=== PATIENT | female | born 1945 | race Caucasian/White ===

== ENCOUNTER → 2022-09-02 08:44 | Outpatient (BNVA) | payer MEDICARE, MEDICAID, SELFPAY | PROVIDERS: PCP Family Medicine; Visit Provider Psychiatry & Neurology Neurology | DX: F09 Unspecified mental disorder due to known physiological condition (principal); F32.A Depression, unspecified; F41.9 Anxiety disorder, unspecified | CPT/HCPCS: 99202 ==

== ENCOUNTER 2022-10-12 16:15 | Outpatient (REF) | payer MEDICARE, SELFPAY ==
--- NOTE | ~2022-10-12 | MR_ITS ---
EXAMINATION: MR BRAIN WITHOUT CONTRAST CLINICAL INFORMATION: FULLNESS, left-sided blindness, cognitive condition COMPARISON: MRI brain 10/16/2009 TECHNIQUE: MRI of the brain was obtained using routine sequences without contrast. FINDINGS: No acute infarct. No acute intracranial hemorrhage or extra-axial fluid collection. Progressive mild generalized parenchymal volume loss. 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 New chronic small vessel infarct in the left external capsule, again seen within the right cano radiata/right inferior frontal gyrus subcortical white matter. Redemonstrated measuring T2 hyperintensity within the globus pallidus right, which may reflect sequelae of prior vascular or toxic/metabolic insult. No mass lesion, mass effect, or herniation pattern. Normal intracranial arterial and dural venous sinus flow voids. Normal appearance of the midline structures. The orbits are grossly unremarkable. The paranasal sinuses and mastoids are well aerated. 4 mm proteinaceous mucus retention cyst in the right paramedian nasopharynx. Normal marrow signal. Incompletely imaged cervical discogenic disease and spondylosis. MR/MR head/brain wo con IMPRESSION: No acute intracranial abnormality. Progressive mild volume loss and nonspecific white matter disease likely reflecting mild chronic microangiopathy. Chronic lacunar infarcts, again seen in the the right cano radiata/inferior frontal gyrus subcortical white matter and new in the left external capsule.
== END 2022-10-12 16:16 | disposition home or self-care (01) ==
LOC: HO.MRI 16:15
PROVIDERS: PCP Family Medicine; Visit Provider Psychiatry & Neurology Neurology
DX: F09 Unspecified mental disorder due to known physiological condition (principal)
CPT/HCPCS: 70551

== ENCOUNTER → 2022-11-26 09:04 | Outpatient (BNVA) | payer MEDICARE, SELFPAY | PROVIDERS: PCP Family Medicine; Visit Provider Psychiatry & Neurology Neurology | DX: F32.A Depression, unspecified (principal); F41.9 Anxiety disorder, unspecified; F09 Unspecified mental disorder due to known physiological condition | CPT/HCPCS: 99212 ==

== ENCOUNTER 2022-12-01 09:29 | Outpatient (REF) | payer MEDICARE, SELFPAY ==
[2022-12-01 09:48] LABS: MANUAL DIFF FLAG NO
[2022-12-01 10:38] LABS: Basophils Absolute Auto 0.1 X10*3/uL (0.0-0.2); Basophils Percent Auto 1.1 % (0-2); Eosinophils Absolute Auto 0.4 X10*3/uL (0.0-0.4); Eosinophils Percent Auto 5.7 % (0-4); Hematocrit 43.4 % (37.0-47.0); Hemoglobin 15.2 g/dl (12.0-16.0); Imm Gran Abs Auto 0.04 X10*3/uL (0.00-0.03); Imm Gran Pct Auto 0.5 % (0.0-0.4); Lymphocytes Absolute Auto 1.3 X10*3/uL (1.2-4.9); Lymphocytes Percent Auto 17.9 % (20-40); Mean Corpuscular Hemoglobin 30.8 pg (27.0-33.0); Mean Platelet Volume 9.6 fL (9.4-12.3); Monocytes Absolute Auto 0.5 X10*3/uL (0.1-1.2); Monocytes Percent Auto 6.4 % (2-11); Neutrophils Percent Auto 68.4 % (45-73); Platelet Count 297 X10*3/uL (160-400); Red Blood Count 4.93 X10*6/uL (4.20-5.50); Red Cell Distribution Width 12.3 % (11.0-16.0); White Blood Count 7.4 X10*3/uL (4.8-10.8)
[2022-12-01 11:16] LABS: Erythrocyte Sedimentation Rate 23 MM/HR (0-20)
[2022-12-01 11:44] LABS: Alanine Aminotransferase 24 U/L (0-31); Albumin Level 3.7 g/dL (3.5-5.0); Alkaline Phosphatase 109 U/L (39-117); Anion Gap 15 (12-20); Aspartate Amino Transferase 26 U/L (5-31); Bilirubin Total 0.5 mg/dL (0.0-1.0); Blood Urea Nitrogen 12 mg/dL (9-16); Carbon Dioxide 27 mmol/L (22-29); Chloride 99 mmol/L (96-108); Estimated Glomerular Filt Rate 56; Glucose Random 439 mg/dL (60-115); Sodium 137 mmol/L (135-145)
[2022-12-01 11:51] LABS: Folate 7.8 ng/mL (> or = 4.0); TSH reflex Free T4 1.68 uIU/mL (0.32-4.0); Vitamin B12 393 pg/mL (200-900)
== END 2022-12-01 09:30 | disposition home or self-care (01) ==
LOC: HO.LAB 09:29
PROVIDERS: PCP Family Medicine; Visit Provider Psychiatry & Neurology Neurology
DX: F09 Unspecified mental disorder due to known physiological condition (principal)
CPT/HCPCS: 36415; 80053; 82607; 82746; 84443; 85025; 85652

== ENCOUNTER 2023-06-27 10:08 | Outpatient (REF) | payer MEDICARE, SELFPAY ==
[2023-06-27 11:42] LABS: Estimated Average Glucose 338 mg/dL; Hemoglobin A1c % 13.4 % (<6.0)
[2023-06-27 11:53] LABS: Alanine Aminotransferase 19 U/L (0-31); Albumin Level 4.3 g/dL (3.5-5.0); Alkaline Phosphatase 116 U/L (39-117); Anion Gap 17 (12-20); Aspartate Amino Transferase 18 U/L (5-31); Bilirubin Direct 0.2 mg/dL (0.0-0.5); Bilirubin Total 0.7 mg/dL (0.0-1.0); Blood Urea Nitrogen 14 mg/dL (9-16); Calcium 10.1 mg/dL (8.4-10.2); Carbon Dioxide 30 mmol/L (22-29); Chloride 92 mmol/L (96-108); Cholesterol 339 mg/dL (<200); Estimated Glomerular Filt Rate 47; Glucose Random 387 mg/dL (60-115); HDL Cholesterol 57 mg/dL (>40); LDL Cholesterol Calculated 251 mg/dL (<100); Potassium 2.9 mmol/L (3.3-5.1); Sodium 136 mmol/L (135-145); Total Protein 8.7 g/dL (6.5-8.0); Triglycerides 155 mg/dL (<150)
[2023-06-27 12:17] LABS: Microalbum/Creatinine Ratio Ur 17.9 ug/mg cr (<30)
== END 2023-06-27 10:09 | disposition home or self-care (01) ==
LOC: HO.HHCL 10:08
PROVIDERS: Visit Provider Family Medicine
DX: E11.9 Type 2 diabetes mellitus without complications (principal)
CPT/HCPCS: 36415; 80048; 80061; 80076; 82043; 82570; 83036

== ENCOUNTER 2023-07-21 12:07 | Outpatient (REF) | payer MEDICARE, SELFPAY ==
--- NOTE | ~2023-07-21 | XR_ITS ---
EXAMINATION: XR HIP, RIGHT CLINICAL INFORMATION: Right hip pain after fall COMPARISON: None available. TECHNIQUE: Two views of the right hip. FINDINGS: No fracture. Alignment is anatomic. Hip joint space is maintained. Soft tissues are unremarkable. XR/XR hip RT min 2V IMPRESSION: Normal right hip.
== END 2023-07-21 12:08 | disposition home or self-care (01) ==
LOC: HO.HHCX 12:07
PROVIDERS: Visit Provider Student in an Organized Health Care Education/Training Program
DX: M25.551 Pain in right hip (principal)
CPT/HCPCS: 73502

== ENCOUNTER 2023-07-21 12:30 | Outpatient (REF) | payer MEDICARE, SELFPAY ==
[2023-07-21 13:11] LABS: MANUAL DIFF FLAG NO
[2023-07-21 13:38] LABS: Basophils Absolute Auto 0.1 X10*3/uL (0.0-0.2); Basophils Percent Auto 0.9 % (0-2); Eosinophils Absolute Auto 0.3 X10*3/uL (0.0-0.4); Eosinophils Percent Auto 3.2 % (0-4); Hematocrit 45.6 % (37.0-47.0); Imm Gran Abs Auto 0.04 X10*3/uL (0.00-0.03); Imm Gran Pct Auto 0.5 % (0.0-0.4); Lymphocytes Percent Auto 22.5 % (20-40); Mean Corpuscular HGB Conc 35.1 g/dl (31.0-35.0); Mean Corpuscular Hemoglobin 30.5 pg (27.0-33.0); Mean Corpuscular Volume 86.9 fL (80.0-98.0); Mean Platelet Volume 10.3 fL (9.4-12.3); Monocytes Absolute Auto 0.6 X10*3/uL (0.1-1.2); Monocytes Percent Auto 6.6 % (2-11); Neutrophils Absolute Auto 5.9 x10*3/uL (2.0-8.3); Neutrophils Percent Auto 66.3 % (45-73); Platelet Count 336 X10*3/uL (160-400); Red Blood Count 5.25 X10*6/uL (4.20-5.50); Red Cell Distribution Width 11.5 % (11.0-16.0); White Blood Count 8.9 X10*3/uL (4.8-10.8)
[2023-07-21 14:18] LABS: Potassium 2.7 mmol/L (3.3-5.1)
== END 2023-07-21 12:31 | disposition home or self-care (01) ==
LOC: HO.HHCL 12:30
PROVIDERS: Family Medicine; Visit Provider Student in an Organized Health Care Education/Training Program
DX: E87.6 Hypokalemia (principal); T14.8XXA Other injury of unspecified body region, initial encounter
CPT/HCPCS: 36415; 83735; 84132; 85025

== ENCOUNTER 2023-07-22 09:52 | Outpatient (REF) | payer MEDICARE, SELFPAY ==
[2023-07-22 12:19] LABS: Appearance Urine Clear; Color Urine Yellow; Glucose Urine UA >=1000 mg/dL (Negative); Leukocyte Esterase Urine Trace (Negative); Nitrite Urine Negative (Negative); PH 7.5 (5.0-9.0); Specific Gravity - Urine 1.025 (1.005-1.025); UMIC TRIGGER UACC YES; Urine Blood Negative (Negative); Urine Ketones Negative (Negative); Urine Protein Negative (Neg-Trace)
[2023-07-22 12:22] LABS: Bacteria Urine Trace (None Seen); Hyaline Casts Urine 0-2 /LPF (0-2); RBC Urine 0-2 /HPF (0-2); UACC Culture Trigger YES
== END 2023-07-22 09:53 | disposition home or self-care (01) ==
LOC: HO.HHCL 09:52
PROVIDERS: Visit Provider Student in an Organized Health Care Education/Training Program
DX: M25.551 Pain in right hip (principal); R82.90 Unspecified abnormal findings in urine
CPT/HCPCS: 81001; 87086

== ENCOUNTER 2023-08-04 12:01 | Outpatient (REF) | payer MEDICARE, SELFPAY | END 2023-08-04 12:02 | disposition home or self-care (01) | LOC: HO.HHCL 12:01 | PROVIDERS: Visit Provider Student in an Organized Health Care Education/Training Program | DX: E87.6 Hypokalemia (principal) | CPT/HCPCS: 36415; 80053 ==

== ENCOUNTER 2023-08-10 19:29 | Inpatient (IN) | payer OTHER, SELFPAY ==
--- NOTE | 2023-08-10 | ECG_ITS ---
Test Reason : AMS Blood Pressure : / mmHG Vent. Rate : 067 BPM Atrial Rate : 067 BPM P-R Int : 174 ms QRS Dur : 106 ms QT Int : 442 ms P-R-T Axes : 000 -32 140 degrees QTc Int : 467 ms Sinus rhythm with occasional Premature ventricular complexes Left axis deviation Minimal voltage criteria for LVH, may be normal variant ( [place] product ) ST & T wave abnormality, consider anterolateral ischemia Abnormal ECG When compared with ECG of 15-OCT-2009 07:35, T wave inversion now evident in Anterolateral leads Referred By: Generic ED Physician Electronically Signed By:SARKIS KAUFMAN MD
--- NOTE | ~2023-08-10 | XR_ITS ---
EXAMINATION: XR CHEST CLINICAL INFORMATION: Fever and cough COMPARISON: Chest 10/15/2009. TECHNIQUE: Frontal view of the chest was obtained. FINDINGS: The lungs are hypoexpanded but clear. The heart size and pulmonary vascularity is normal. No gross bony abnormality seen. XR/XR chest 1V IMPRESSION: Mild cardiomegaly. No acute process seen.
[2023-08-10 19:36] VITALS: BP 132/92; PULSE 69; PULSE 74; RESP 14; TEMP 38.3; O2SAT 93; BMI 26.4
[2023-08-10 19:42] VITALS: BP 122/65; O2SAT 93
--- NOTE | 2023-08-10 19:45 | ED_ITS ---
HPI - General Adult General Chief complaint: General Medical Stated complaint: AMS,dementia @baseline, ?UTI Time Seen by Provider: 08/10/23 19:45 History of Present Illness HPI narrative: The the patient is a 78-year-old woman with a history of dementia who lives at home and is looked after primarily by her daughter and grandson. Apparently the patient was fine yesterday. Today the patient seemed ill. She seemed weak and more confused than usual. She has a history of type 2 diabetes for which she takes metformin 500 mg ER daily. She has also recently been started on Januvia 25 mg daily and Lantus 10 units at bedtime. The patient is nonverbal and is unable to give any history. The patient's son is at the bedside as is the grandson. They report that the patient has been coughing a lot during the day today and has also vomited a couple of times. The patient has not seemed to be in any pain. There was no diarrhea. Related Data Home Medications Medication Instructions Recorded Confirmed atenolol 50 mg-chlorthalidone 25 1 tab PO DAILY 09/02/22 11/26/22 mg tablet (Tenoretic) ibuprofen 800 mg tablet 800 mg PO Q8H 09/02/22 11/26/22 loratadine 10 mg tablet (Allergy 10 mg PO DAILY 09/02/22 11/26/22 Relief (loratadine)) metformin 500 mg tablet 500 mg PO DAILY 09/02/22 11/26/22 Previous Rx's Medication Instructions Recorded citalopram 10 mg tablet 10 mg PO DAILY #30 tabs 07/01/23 memantine 21 mg capsule 21 mg PO DAILY #30 ea 07/01/23 sprinkle,extended release 24hr Allergies Allergy/AdvReac Type Severity Reaction Status Date / Time codeine [Codeine] Allergy Severe PASSED OUT Verified 08/11/23 01:08 Penicillins Allergy Unknown Verified 08/11/23 01:08 Review of Systems 2 Review of Systems: Yes all other systems are reviewed and are negative PMFSH Past Medical History Onset Date is defined in the Problem List Problems that require an onset date and time if occurred within 24 hrs of arrival to the ED Aortic Dissection and Rupture; Neurologic impairment; Cardiopulmonary Arrest; Endotracheal Intubation; Insertion or Replacement of Mechanical Circulatory Assist Device Medical History (Updated 08/11/23 @ 00:32 by Noel Valenzuela MD) Confusion Left optic neuropathy Fibroids Combined hyperlipidemia Diabetes HTN (hypertension) Anxiety Depression Surgical History H/O: hysterectomy Family History Family History Mother Diabetes Cancer Social History Social History Alcohol intake: never Patient Tobacco Use Status: Never used Tobacco Smoked in Last 30 Days: No Use of substances other than those prescribed or required for medical reasons: No Advance Directives: No Advance Directives Information Provided: No Physical Exam ED Vital Signs: Vital Signs - 24 hr 08/10/23 19:36 08/10/23 19:42 08/10/23 20:00 Temperature 100.9 F H Pulse Rate 69 Pulse Rate [Monitor] 65 Respiratory Rate 14 Blood Pressure 122/65 Pulse Oximetry 93 Oxygen Delivery Method Room Air Room Air Oxygen Flow Rate 08/10/23 22:36 08/10/23 23:46 08/10/23 23:46 Temperature 98.5 F Pulse Rate 64 Pulse Rate [Monitor] Respiratory Rate 18 Blood Pressure 115/57 L Pulse Oximetry 92 90 L 95 Oxygen Delivery Method Room Air Room Air Nasal Cannula Oxygen Flow Rate 1 BMI result Body Mass Index 26.4 Const Other: The patient is a chronically ill-appearing 78-year-old who seemed very sleepy. She aroused with tactile stimuli. She did not seem in pain or respiratory distress. She looks somewhat ill and very fatigued. HENMT Other: Mucous membranes were moist. Face is symmetrical. Eyes Other: Pupils are round equal, conjunctivae clear, no scleral icterus. Neck Other: No JVD. No cervical adenopathy. Neck is supple. Resp Other: No increased work of breathing. No tanisha crackles or wheezes. Cardio Other: The patient has regular rate rhythm no murmur. GI Other: The abdomen is soft and does not seem tender at all. Skin Other: Skin is dry and unremarkable. No diaphoresis. No cellulitis. Neuro Other: The patient seems very fatigued. She responds to tactile stimuli. She is apparently demented at baseline. There is no obvious facial asymmetry. Her tone in her extremities seems symmetrical. No obvious focal finding. Extrem Other: No obvious peripheral edema. Medications Administered Discontinued Medications Generic Name Dose Route Start Last Admin Trade Name Jean Pierre PRN Reason Stop Dose Admin Acetaminophen 650 mg 08/10/23 21:02 08/10/23 21:13 Acetaminophen 325 Mg Tablet PO 08/10/23 21:03 Not Given ONCE ONE Acetaminophen 650 mg 08/10/23 21:31 08/10/23 22:02 Acetaminophen Supp 650 Mg Supp.Rect OR 08/10/23 21:32 650 mg ONCE ONE Administration Potassium Chloride/Sodium Chloride 40 meq in 1,000 mls @ 250 mls/hr 08/10/23 20:30 08/10/23 21:36 Kcl 40 Meq In 0.9 % Sodium Chl IV 08/11/23 00:29 250 mls/hr .Q4H TERENCE Administration Ceftriaxone Sodium 1 gm/ 50 mls @ 100 mls/hr 08/10/23 21:27 08/10/23 22:18 Sodium Chloride IV 08/10/23 21:56 Infused ONCE ONE Infusion Azithromycin 500 mg/ Sodium 250 mls @ 125 mls/hr 08/10/23 21:28 08/11/23 00:05 Chloride IV 08/10/23 23:27 Infused ONCE ONE Infusion Sodium Chloride 1,000 mls @ 999 mls/hr 08/10/23 22:00 08/10/23 23:29 Ns IV 08/10/23 23:00 Infused .Q1H1M TERENCE Infusion Insulin Glargine 12 unit 08/10/23 22:35 08/10/23 23:02 Insulin Glargine,Hum.Rec.Anlog 100 Unit/Ml 10 Ml Vial SUBCUT 08/10/23 22:36 12 unit ONCE ONE Administration Potassium Chloride 40 meq 08/10/23 21:02 08/10/23 21:39 Potassium Chloride Er 10 Meq Tablet.Er PO 08/10/23 21:03 Not Given ONCE ONE Medical Decision Making Medical Decision Making MDM Narrative: The patient is a 78-year-old female who presents with 1 day of illness characterized by cough, weakness, and increasing confusion. Here she was found to have a fever. She did not seem toxic. She was not tachycardic or hypotensive. She has tested positive for COVID. Additional evaluation included a negative urinalysis and a negative chest x-ray. Her abdomen is entirely benign. The patient's white count was elevated and her CRP was somewhat elevated at 7.56. Therefore, although I think that COVID is really her primary problem we obtained blood cultures and a lactate. Her lactate came back elevated at 4.0. The patient is on metformin. Given that the patient had a heart rate primarily in the 60s and was not hypotensive I think it is highly unlikely that the patient's elevated lactate is an indication of sepsis. I think it is much more likely that the patient's elevated lactate is related to her use of metformin and not sepsis. The patient was started on antibiotics and given IV fluids. Additionally the patient was hypokalemic and she was given potassium replacement. She was also hyperglycemic and was given an evening dose of Lantus. She was then admitted to the hospitalist service. Her repeat lactate improved at 3.1. Lab Data 08/10/23 19:56 08/10/23 19:56 Labs: Lab Results 08/10/23 08/10/23 08/10/23 Range/Units 19:56 20:13 20:14 WBC 16.1 H (4.8-10.8) X10*3/uL RBC 5.02 (4.20-5.50) X10*6/uL Hgb 15.1 (12.0-16.0) g/dl Hct 43.2 (37.0-47.0) % MCV 86.1 (80.0-98.0) fL MCH 30.1 (27.0-33.0) pg MCHC 35.0 (31.0-35.0) g/dl RDW 11.9 (11.0-16.0) % Plt Count 265 (160-400) X10*3/uL MPV 9.2 L (9.4-12.3) fL Immature Gran % (Auto) 0.4 (0.0-0.4) % Neut % (Auto) 86.3 H (45-73) % Lymph % (Auto) 5.3 L (20-40) % Victoria % (Auto) 7.8 (2-11) % Eos % (Auto) 0.0 (0-4) % Baso % (Auto) 0.2 (0-2) % Lymph # (Auto) 0.9 L (1.2-4.9) X10*3/uL Victoria # (Auto) 1.3 H (0.1-1.2) X10*3/uL Eos # (Auto) 0.0 (0.0-0.4) X10*3/uL Baso # (Auto) 0.0 (0.0-0.2) X10*3/uL Abs Immat Gran (auto) 0.06 H (0.00-0.03) X10*3/uL Absolute Neuts (auto) 13.9 H (2.0-8.3) x10*3/uL Absolute Nucleated RBC 0.000 (0.0-0.012) X10*3/uL Nucleated RBC % (auto) 0.0 (0.0-0.2) /100WBC Sodium 133 L (135-145) mmol/L Potassium 2.8 L* (3.3-5.1) mmol/L Chloride 91 L (96-108) mmol/L Carbon Dioxide 25 (22-29) mmol/L Anion Gap 20 (12-20) BUN 15 (9-16) mg/dL Creatinine 1.32 (0.5-1.4) mg/dL Estim Creat Clear Calc 30.9 Estimated GFR 39 POC Glucose (60-115) mg/dL Random Glucose 422 H* (60-115) mg/dL Lactic Acid (0.5-2.0) mmol/L Lactic Acid F/U @ 2Hr (0.5-2.0) mmol/L Calcium 9.5 D (8.4-10.2) mg/dL Total Bilirubin 0.7 (0.0-1.0) mg/dL AST 53 H (5-31) U/L ALT 32 H (0-31) U/L Alkaline Phosphatase 80 (39-117) U/L Troponin I High Sens 43.6 H (<3.5-17.0) ng/L C-Reactive Protein 7.56 H (< or = 0.50) mg/dL Total Protein 8.0 (6.5-8.0) g/dL Albumin 3.9 (3.5-5.0) g/dL Urine Color Yellow Urine Appearance Clear Urine pH 6.0 (5.0-9.0) Ur Specific Victoria 1.025 (1.005-1.025) Urine Protein 30 (1+) H (Neg-Trace) mg/dL Urine Glucose (UA) 500 H (Negative) mg/dL Urine Ketones 40 (Negative) mg/dL Urine Blood Negative (Negative) Urine Nitrite Negative (Negative) Ur Leukocyte Esterase Negative (Negative) Urine RBC Not Reportable Urine WBC 0-5 (0-5) /HPF Ur Squamous Epith Cells 0-2 (0-2) /HPF Urine Bacteria None Seen (None Seen) Hyaline Casts 11-20 (0-2) /LPF Influenza Type A (PCR) NEGATIVE (Negative) Influenza Type B (PCR) NEGATIVE (Negative) RSV RNA Qual (PCR) NEGATIVE (Negative) SARS-CoV-2 RNA (RT-PCR) POSITIVE A (Negative) 08/10/23 08/10/23 08/10/23 Range/Units 20:55 22:53 23:14 WBC (4.8-10.8) X10*3/uL RBC (4.20-5.50) X10*6/uL Hgb (12.0-16.0) g/dl Hct (37.0-47.0) % MCV (80.0-98.0) fL MCH (27.0-33.0) pg MCHC (31.0-35.0) g/dl RDW (11.0-16.0) % Plt Count (160-400) X10*3/uL MPV (9.4-12.3) fL Immature Gran % (Auto) (0.0-0.4) % Neut % (Auto) (45-73) % Lymph % (Auto) (20-40) % Victoria % (Auto) (2-11) % Eos % (Auto) (0-4) % Baso % (Auto) (0-2) % Lymph # (Auto) (1.2-4.9) X10*3/uL Victoria # (Auto) (0.1-1.2) X10*3/uL Eos # (Auto) (0.0-0.4) X10*3/uL Baso # (Auto) (0.0-0.2) X10*3/uL Abs Immat Gran (auto) (0.00-0.03) X10*3/uL Absolute Neuts (auto) (2.0-8.3) x10*3/uL Absolute Nucleated RBC (0.0-0.012) X10*3/uL Nucleated RBC % (auto) (0.0-0.2) /100WBC Sodium (135-145) mmol/L Potassium (3.3-5.1) mmol/L Chloride (96-108) mmol/L Carbon Dioxide (22-29) mmol/L Anion Gap (12-20) BUN (9-16) mg/dL Creatinine (0.5-1.4) mg/dL Estim Creat Clear Calc Estimated GFR POC Glucose 306 H (60-115) mg/dL Random Glucose (60-115) mg/dL Lactic Acid 4.0 H* (0.5-2.0) mmol/L Lactic Acid F/U @ 2Hr 3.1 H* (0.5-2.0) mmol/L Calcium (8.4-10.2) mg/dL Total Bilirubin (0.0-1.0) mg/dL AST (5-31) U/L ALT (0-31) U/L Alkaline Phosphatase (39-117) U/L Troponin I High Sens (<3.5-17.0) ng/L C-Reactive Protein (< or = 0.50) mg/dL Total Protein (6.5-8.0) g/dL Albumin (3.5-5.0) g/dL Urine Color Urine Appearance Urine pH (5.0-9.0) Ur Specific Victoria (1.005-1.025) Urine Protein (Neg-Trace) mg/dL Urine Glucose (UA) (Negative) mg/dL Urine Ketones (Negative) mg/dL Urine Blood (Negative) Urine Nitrite (Negative) Ur Leukocyte Esterase (Negative) Urine RBC Urine WBC (0-5) /HPF Ur Squamous Epith Cells (0-2) /HPF Urine Bacteria (None Seen) Hyaline Casts (0-2) /LPF Influenza Type A (PCR) (Negative) Influenza Type B (PCR) (Negative) RSV RNA Qual (PCR) (Negative) SARS-CoV-2 RNA (RT-PCR) (Negative) 08/10/23 Range/Units 23:44 WBC (4.8-10.8) X10*3/uL RBC (4.20-5.50) X10*6/uL Hgb (12.0-16.0) g/dl Hct (37.0-47.0) % MCV (80.0-98.0) fL MCH (27.0-33.0) pg MCHC (31.0-35.0) g/dl RDW (11.0-16.0) % Plt Count (160-400) X10*3/uL MPV (9.4-12.3) fL Immature Gran % (Auto) (0.0-0.4) % Neut % (Auto) (45-73) % Lymph % (Auto) (20-40) % Victoria % (Auto) (2-11) % Eos % (Auto) (0-4) % Baso % (Auto) (0-2) % Lymph # (Auto) (1.2-4.9) X10*3/uL Victoria # (Auto) (0.1-1.2) X10*3/uL Eos # (Auto) (0.0-0.4) X10*3/uL Baso # (Auto) (0.0-0.2) X10*3/uL Abs Immat Gran (auto) (0.00-0.03) X10*3/uL Absolute Neuts (auto) (2.0-8.3) x10*3/uL Absolute Nucleated RBC (0.0-0.012) X10*3/uL Nucleated RBC % (auto) (0.0-0.2) /100WBC Sodium (135-145) mmol/L Potassium (3.3-5.1) mmol/L Chloride (96-108) mmol/L Carbon Dioxide (22-29) mmol/L Anion Gap (12-20) BUN (9-16) mg/dL Creatinine (0.5-1.4) mg/dL Estim Creat Clear Calc Estimated GFR POC Glucose (60-115) mg/dL Random Glucose (60-115) mg/dL Lactic Acid (0.5-2.0) mmol/L Lactic Acid F/U @ 2Hr (0.5-2.0) mmol/L Calcium (8.4-10.2) mg/dL Total Bilirubin (0.0-1.0) mg/dL AST (5-31) U/L ALT (0-31) U/L Alkaline Phosphatase (39-117) U/L Troponin I High Sens 44.6 H (<3.5-17.0) ng/L C-Reactive Protein (< or = 0.50) mg/dL Total Protein (6.5-8.0) g/dL Albumin (3.5-5.0) g/dL Urine Color Urine Appearance Urine pH (5.0-9.0) Ur Specific Victoria (1.005-1.025) Urine Protein (Neg-Trace) mg/dL Urine Glucose (UA) (Negative) mg/dL Urine Ketones (Negative) mg/dL Urine Blood (Negative) Urine Nitrite (Negative) Ur Leukocyte Esterase (Negative) Urine RBC Urine WBC (0-5) /HPF Ur Squamous Epith Cells (0-2) /HPF Urine Bacteria (None Seen) Hyaline Casts (0-2) /LPF Influenza Type A (PCR) (Negative) Influenza Type B (PCR) (Negative) RSV RNA Qual (PCR) (Negative) SARS-CoV-2 RNA (RT-PCR) (Negative) Independent Interpretation I performed an independent interpretation of an: EKG Interpretation: EKG at 19:52 shows sinus rhythm at 67 beats per minute. Discharge Plan Discharge Clinical Impression: COVID, Acute hypokalemia, Acute hyperglycemia Patient Disposition: Admitted As Inpatient
--- NOTE | 2023-08-10 19:57 | PC.NURSE ---
pt febrile Dr. Valenzuela made aware. order for straight cath obtained. nsr on monitor ekg obtained. iv established labs drawn. awaiting further orders.
[2023-08-10 20:00] VITALS: PULSE 65
[2023-08-10 20:02] LABS: MANUAL DIFF FLAG NO
[2023-08-10 20:03] LABS: Basophils Percent Auto 0.2 % (0-2); Hematocrit 43.2 % (37.0-47.0); Hemoglobin 15.1 g/dl (12.0-16.0); Imm Gran Abs Auto 0.06 X10*3/uL (0.00-0.03); Imm Gran Pct Auto 0.4 % (0.0-0.4); Lymphocytes Absolute Auto 0.9 X10*3/uL (1.2-4.9); Lymphocytes Percent Auto 5.3 % (20-40); Mean Corpuscular Hemoglobin 30.1 pg (27.0-33.0); Mean Corpuscular Volume 86.1 fL (80.0-98.0); Mean Platelet Volume 9.2 fL (9.4-12.3); Monocytes Absolute Auto 1.3 X10*3/uL (0.1-1.2); Monocytes Percent Auto 7.8 % (2-11); Neutrophils Absolute Auto 13.9 x10*3/uL (2.0-8.3); Neutrophils Percent Auto 86.3 % (45-73); Platelet Count 265 X10*3/uL (160-400); Red Blood Count 5.02 X10*6/uL (4.20-5.50); Red Cell Distribution Width 11.9 % (11.0-16.0); White Blood Count 16.1 X10*3/uL (4.8-10.8)
--- NOTE | 2023-08-10 20:12 | PC.NURSE ---
straight cath urine obtained pt tolerated well. ua sent to lab. family educated, at bedside.
[2023-08-10 20:20] LABS: Alanine Aminotransferase 32 U/L (0-31); Albumin Level 3.9 g/dL (3.5-5.0); Alkaline Phosphatase 80 U/L (39-117); Anion Gap 20 (12-20); Aspartate Amino Transferase 53 U/L (5-31); Bilirubin Total 0.7 mg/dL (0.0-1.0); Blood Urea Nitrogen 15 mg/dL (9-16); Calcium 9.5 mg/dL (8.4-10.2); Carbon Dioxide 25 mmol/L (22-29); Chloride 91 mmol/L (96-108); Creatinine Clr Calc Pharmacy 30.9; Estimated Glomerular Filt Rate 39; Glucose Random 422 mg/dL (60-115); Potassium 2.8 mmol/L (3.3-5.1); Sodium 133 mmol/L (135-145)
[2023-08-10 20:27] LABS: Appearance Urine Clear; Color Urine Yellow; Glucose Urine UA 500 mg/dL (Negative); Leukocyte Esterase Urine Negative (Negative); Nitrite Urine Negative (Negative); Specific Gravity - Urine 1.025 (1.005-1.025); UMIC TRIGGER UACC YES; Urine Blood Negative (Negative); Urine Ketones 40 mg/dL (Negative); Urine Protein 30 (1+) mg/dL (Neg-Trace)
[2023-08-10 20:37] LABS: Bacteria Urine None Seen (None Seen); Squamous Epithelial Cell Urine 0-2 /HPF (0-2); WBC Urine 0-5 /HPF (0-5)
[2023-08-10 20:44] LABS: C Reactive Protein 7.56 mg/dL (< or = 0.50)
[2023-08-10 21:06] LABS: Influenza A PCR NEGATIVE (Negative); Influenza B PCR NEGATIVE (Negative); Resp Syncy Virus RNA Qual PCR NEGATIVE (Negative); SARS COV2 PCR INHOUSE POSITIVE (Negative)
[2023-08-10] MEDS: cefTRIAXone sodium 1 GM in 0.9 % Sodium Chloride 50 ML IV (21:35)
[2023-08-10] MEDS: KCl 40 mEq in 0.9 % Sodium Chl 40 MEQ/1,000 ML IV.SOLN 250 MEQ IV (21:36)
[2023-08-10] MEDS: Acetaminophen Supp 650 MG SUPP.RECT PR (22:02)
[2023-08-10] MEDS: Azithromycin 500 MG in 0.9 % Sodium Chloride 250 ML 125 MG IV (22:19)
[2023-08-10] MEDS: 0.9 % Sodium Chloride 1,000 ML 999 ML IV (22:19)
--- NOTE | 2023-08-10 22:33 | PC.NURSE ---
dr marin aware of bgl; no new orders.
[2023-08-10 22:36] VITALS: BP 115/57; PULSE 64; RESP 18; TEMP 36.9; O2SAT 92
[2023-08-10 22:59] LABS: Glucose, Whole Blood 306 mg/dL (60-115)
[2023-08-10 23:01] LABS: Reflex Lactate? Lactic Acid Added
[2023-08-10] MEDS: Insulin Glargine,Hum.rec.anlog 100 UNIT/ML 10 ML VIAL 12 UNIT SUBCUT (23:02)
[2023-08-10 23:16] LABS: Troponin-I High Sensitivity 43.6 ng/L (<3.5-17.0)
[2023-08-10 23:46] VITALS: O2SAT 90; O2SAT 95
[2023-08-10 23:46] LABS: ~Lactic Acid-LAB USE ONLY 3.1 mmol/L (0.5-2.0)
[2023-08-11 00:07] LABS: Troponin-I High Sensitivity 44.6 ng/L (<3.5-17.0)
--- NOTE | 2023-08-11 01:09 | PC.NURSE ---
poc 235. resp even and unlabored. nad. pt sleeping. family at bedside. call pena within reach.
[2023-08-11 01:11] LABS: Glucose, Whole Blood 235 mg/dL (60-115)
[2023-08-11] MEDS: 0.9 % Sodium Chloride 1,000 ML 100 ML IVCONT ×2 (01:18→14:49)
[2023-08-11] MEDS: Insulin Lispro 100 UNIT/ML 3 ML VIAL SUBCUT ×3 (01:18→20:58)
[2023-08-11 01:19] VITALS: BP 107/58; PULSE 56; RESP 14; O2SAT 95
[2023-08-11 01:19] LABS: Reflex Lactate? 2 Y
[2023-08-11 01:50] LABS: ~Lactic Acid-LAB USE ONLY 2.1 mmol/L (0.5-2.0)
--- NOTE | 2023-08-11 01:53 | PC.NURSE ---
held po meds as pt too lethargic to take at this time. pt arrousable to name however does not want pills at this time. aware. no new orders for critical as lactic trending down. per Dr. Hobbs no further orders in regards to K, will wait for am labs.
--- NOTE | 2023-08-11 03:34 | P.HPHOSP_ITS ---
History of Present Illness Date of Service: 08/11/23 Attending physician on admission: Tonio Seo Chief Complaint: Confusion Noelle Collins is a 78 years old woman with past medical history significant for dementia, type 2 diabetes mellitus on insulin and metformin was brought emergency department due to worsening confusion and lethargic. HPI was provided by patient's family who were at bedside. Family member stated that the patient has been coughing and vomiting. No diarrhea has been observed and the patient has not been complaining of abdominal pain. In the ED, she was found to have fever, 100.9. There is no hypotension. According to ED patient has been having episode of low oxygen saturation. She is currently on 2 liters/minute of supplemental oxygen via nasal cannula and satting at 95%. Blood workup is remarkable for leukocytosis of 16.1. Potassium liver is 2.8. Her blood glucose was 422 initially but after receiving insulin her most recent glucose level dropped to 235. Corrected sodium is 141. Her initial lactic acid was 4.0. Latest lactic acid is 2.1. Troponin is elevated x2 ( 43.6, 44.6). Urinalysis dated showed urinary tract infection. Viral testing came back positive for COVID-19. CXR is negative. ED tx: KCL 40 mEq IV, acetaminophen 650 mg p.o. x1, ceftriaxone 1 g IV, azithromycin 500 mg IV x1, normal saline 1 L bolus, Lantus 12 units subQ. Review of Systems 2 Review of Systems: Unable to obtain due to lethargy. Neurologic: Reports confusion Psychiatric: Psychiatric: Reports confusion [facility] Medical History (Updated 08/11/23 @ 04:34 by Tonio Seo MD) Confusion Left optic neuropathy Fibroids Combined hyperlipidemia Diabetes HTN (hypertension) Anxiety Depression Family History Mother Diabetes Cancer Surgical History H/O: hysterectomy Social History Alcohol intake: never Patient Tobacco Use Status: Never used Tobacco Smoked in Last 30 Days: No Use of substances other than those prescribed or required for medical reasons: No Advance Directives: No Advance Directives Information Provided: No Meds Allergies Allergy/AdvReac Type Severity Reaction Status Date / Time codeine [Codeine] Allergy Severe PASSED OUT Verified 08/11/23 01:08 Penicillins Allergy Unknown Verified 08/11/23 01:08 Active Medications: Current Medications Acetaminophen (Acetaminophen 325 Mg Tablet) 975 mg PO Q6H PRN PRN Reason: Fever Dexamethasone Sodium Phosphate (Dexamethasone Sod Phosphate 4 Mg/Ml Vial) 6 mg IVPUSH DAILY [facility] Dextrose (Dextrose 50 % 25 Gm/50 Ml Syringe) 25 gm IVPUSH Q15M PRN; Protocol PRN Reason: per Hypoglycemia Standing Ord. Glucose (Glucose Gel 15 Gm Gel..Gram.) 15 gm PO Q15M PRN; Protocol PRN Reason: per Hypoglycemia Standing Ord. Heparin Sodium (Porcine) (Heparin Sodium,Porcine 5,000 Unit/Ml Vial) 5,000 unit SUBCUT Q8H [facility] Sodium Chloride (Ns) 1,000 mls @ 100 mls/hr IVCONT .Q10H [facility] Last Admin: 08/11/23 01:18 Dose: 100 mls/hr Remdesivir 200 mg/ Sodium (Chloride) 210 mls @ 105 mls/hr IV ONCE ONE Stop: 08/11/23 08:59 Insulin Glargine (Insulin Glargine,Hum.Rec.Anlog 100 Unit/Ml 10 Ml Vial) 10 unit SUBCUT BEDTIME [facility] Insulin Human Lispro (Insulin Lispro 100 Unit/Ml 3 Ml Vial) 0 unit SUBCUT QIDACHS [facility]; Protocol Last Admin: 08/11/23 01:18 Dose: 4 unit Sodium Chloride (0.9 % Sodium Chloride Flush 3 Ml Syringe) 3 ml IVFLUSH QSHIFT [facility] Home Medications Medication Instructions Recorded Confirmed Last Taken Type atenolol 50 mg-chlorthalidone 25 1 tab PO DAILY 09/02/22 11/26/22 Unknown History mg tablet (Tenoretic) ibuprofen 800 mg tablet 800 mg PO Q8H 09/02/22 11/26/22 Unknown History loratadine 10 mg tablet (Allergy 10 mg PO DAILY 09/02/22 11/26/22 Unknown History Relief (loratadine)) metformin 500 mg tablet 500 mg PO DAILY 09/02/22 11/26/22 Unknown History Physical Exam 2 Vital Signs and Narrative: Vital Signs: Last Vital Signs Temp 98.5 F 08/10/23 22:36 Pulse 56 08/11/23 01:19 Resp 14 08/11/23 01:19 BP 107/58 L 08/11/23 01:19 Pulse Ox 95 08/11/23 01:19 O2 Del Method Nasal Cannula 08/11/23 01:19 O2 Flow Rate 2 08/11/23 01:19 BMI result Body Mass Index 26.4 Const: General: confusion, ill appearing and lethargic; No in distress O rientation/consciousness: confusion and lethargic HEENT: Head: Yes normocephalic and Yes atraumatic Resp: Effort & Inspection: decreased respiratory effort, no respiratory distress, tachypneic and no use of accessory muscles Auscultation: no rhonchi and no wheezes Cardio: Rate: bradycardic Rhythm: regular rhythm GI: Palpation (GI): Soft to palpation and nontender Auscultation: normal bowel sounds Rectal Exam - Female: deferred Skin: General skin exam: no rashes or lesions noted and dry skin Neuro: General: confusion Extrem: General: Yes normal to inspection and No edema Results Labs 08/10/23 19:56 08/10/23 19:56 Labs: Laboratory Results - last 24 hr 08/10/23 08/10/23 08/10/23 19:56 20:13 20:14 MCV 86.1 MCH 30.1 MCHC 35.0 RDW 11.9 Plt Count 265 MPV 9.2 L Immature Gran % (Auto) 0.4 Neut % (Auto) 86.3 H Lymph % (Auto) 5.3 L [place] % (Auto) 7.8 Eos % (Auto) 0.0 Baso % (Auto) 0.2 Lymph # (Auto) 0.9 L [place] # (Auto) 1.3 H Eos # (Auto) 0.0 Baso # (Auto) 0.0 Abs Immat Gran (auto) 0.06 H Absolute Neuts (auto) 13.9 H Absolute Nucleated RBC 0.000 Nucleated RBC % (auto) 0.0 Anion Gap 20 Estim Creat Clear Calc 30.9 Estimated GFR 39 POC Glucose Random Glucose 422 H* Lactic Acid Lactic Acid F/U @ 2Hr Lactic Acid F/U @ 4Hr Calcium 9.5 D Total Bilirubin 0.7 AST 53 H ALT 32 H Alkaline Phosphatase 80 C-Reactive Protein 7.56 H Total Protein 8.0 Albumin 3.9 Urine Color Yellow Urine Appearance Clear Urine pH 6.0 Ur Specific [place] 1.025 Urine Protein 30 (1+) H Urine Glucose (UA) 500 H Urine Ketones 40 Urine Blood Negative Urine Nitrite Negative Ur Leukocyte Esterase Negative Urine RBC Not Reportable Urine WBC 0-5 Ur Squamous Epith Cells 0-2 Urine Bacteria None Seen Hyaline Casts 11-20 Influenza Type A (PCR) NEGATIVE Influenza Type B (PCR) NEGATIVE RSV RNA Qual (PCR) NEGATIVE SARS-CoV-2 RNA (RT-PCR) POSITIVE A 08/10/23 08/10/23 08/10/23 20:55 22:53 23:14 MCV MCH MCHC RDW Plt Count MPV Immature Gran % (Auto) Neut % (Auto) Lymph % (Auto) [place] % (Auto) Eos % (Auto) Baso % (Auto) Lymph # (Auto) [place] # (Auto) Eos # (Auto) Baso # (Auto) Abs Immat Gran (auto) Absolute Neuts (auto) Absolute Nucleated RBC Nucleated RBC % (auto) Anion Gap Estim Creat Clear Calc Estimated GFR POC Glucose 306 H Random Glucose Lactic Acid 4.0 H* Lactic Acid F/U @ 2Hr 3.1 H* Lactic Acid F/U @ 4Hr Calcium Total Bilirubin AST ALT Alkaline Phosphatase C-Reactive Protein Total Protein Albumin Urine Color Urine Appearance Urine pH Ur Specific [place] Urine Protein Urine Glucose (UA) Urine Ketones Urine Blood Urine Nitrite Ur Leukocyte Esterase Urine RBC Urine WBC Ur Squamous Epith Cells Urine Bacteria Hyaline Casts Influenza Type A (PCR) Influenza Type B (PCR) RSV RNA Qual (PCR) SARS-CoV-2 RNA (RT-PCR) 08/11/23 08/11/23 01:06 01:24 MCV MCH MCHC RDW Plt Count MPV Immature Gran % (Auto) Neut % (Auto) Lymph % (Auto) [place] % (Auto) Eos % (Auto) Baso % (Auto) Lymph # (Auto) [place] # (Auto) Eos # (Auto) Baso # (Auto) Abs Immat Gran (auto) Absolute Neuts (auto) Absolute Nucleated RBC Nucleated RBC % (auto) Anion Gap Estim Creat Clear Calc Estimated GFR POC Glucose 235 H Random Glucose Lactic Acid Lactic Acid F/U @ 2Hr Lactic Acid F/U @ 4Hr 2.1 H* Calcium Total Bilirubin AST ALT Alkaline Phosphatase C-Reactive Protein Total Protein Albumin Urine Color Urine Appearance Urine pH Ur Specific [place] Urine Protein Urine Glucose (UA) Urine Ketones Urine Blood Urine Nitrite Ur Leukocyte Esterase Urine RBC Urine WBC Ur Squamous Epith Cells Urine Bacteria Hyaline Casts Influenza Type A (PCR) Influenza Type B (PCR) RSV RNA Qual (PCR) SARS-CoV-2 RNA (RT-PCR) Imaging Radiologist's Impressions: Impressions Chest X-Ray 08/10/23 20:30 IMPRESSION: Mild cardiomegaly. No acute process seen. Assessment and Plan (1) COVID: Status: Acute (2) Acute encephalopathy: Status: Acute Plan Noelle Collins is a 78 years old woman admitted with: * Acute encephalopathy secondary to COVID-19 infection. Admit to hospitalist service. Pulse oximetry. Telemetry. Continue supplemental oxygen via nasal cannula to keep oxygen saturation above 90%. Start therapy with remdesivir and Decadron. Aspiration precautions. Check markers. * Sepsis secondary to likely secondary to COVID-19 infection. Will give additional liter of NS (received one in ED) -30ml/hr. Start remdesivir. Blood cultures were obtained-will follow results. * Elevated troponin. Likely related to COVID-19 infection. We will continue to monitor. * Hypokalemia. replete as needed. Continue to monitor potassium level. * Type 2 diabetes mellitus. Continue Lantus and insulin sliding scale. Metformin on hold due to lactic acidosis. * Essential hypertension. Patient possibly taking atenolol and amlodipine for this (she has sinus bradycardia). Her blood pressure is normal at this time. continue to monitor blood pressure. * Sinus bradycardia. Possible secondary to atenolol. Telemetry. VTE prophylaxis: Heparin subQ Code status: Full. Patient will require hospitalization at least for 2 midnights for sepsis and encephalopathy due to COVID-19 infection evaluation and treatment. Patient will required therapy with IV steroids, Supplemental oxygen, remdesivir in IV fluids. Family members do not recall the names of patient's medications. They will bring them tomorrow to complete meds reconciliation. Quality Stroke Does the patient have a stroke diagnosis?: No VTE Prior VTE?: No VTE Risk Level:: Medical - moderate - high VTE Device Contraindication: Treatment Not Indicated VTE Drug Contraindication: N/A - Med Ordered
[2023-08-11] MEDS: 0.9 % Sodium Chloride 500 ML 1000 ML IV (04:55)
[2023-08-11 06:06] LABS: MANUAL DIFF FLAG NO
[2023-08-11 06:22] LABS: Lactic Acid 1.6 mmol/L (0.5-2.0)
[2023-08-11 06:29] LABS: Basophils Percent Auto 0.3 % (0-2); Eosinophils Percent Auto 0.1 % (0-4); Hematocrit 35.9 % (37.0-47.0); Hemoglobin 12.5 g/dl (12.0-16.0); Imm Gran Abs Auto 0.03 X10*3/uL (0.00-0.03); Imm Gran Pct Auto 0.3 % (0.0-0.4); Lymphocytes Absolute Auto 1.8 X10*3/uL (1.2-4.9); Lymphocytes Percent Auto 17.7 % (20-40); Mean Corpuscular HGB Conc 34.8 g/dl (31.0-35.0); Mean Corpuscular Hemoglobin 30.4 pg (27.0-33.0); Mean Corpuscular Volume 87.3 fL (80.0-98.0); Mean Platelet Volume 9.7 fL (9.4-12.3); Monocytes Percent Auto 9.3 % (2-11); Neutrophils Absolute Auto 7.5 x10*3/uL (2.0-8.3); Neutrophils Percent Auto 72.3 % (45-73); Platelet Count 228 X10*3/uL (160-400); Red Blood Count 4.11 X10*6/uL (4.20-5.50); Red Cell Distribution Width 11.9 % (11.0-16.0); White Blood Count 10.4 X10*3/uL (4.8-10.8)
[2023-08-11 06:36] LABS: Alanine Aminotransferase 24 U/L (0-31); Albumin Level 3.1 g/dL (3.5-5.0); Alkaline Phosphatase 60 U/L (39-117); Anion Gap 12 (12-20); Aspartate Amino Transferase 32 U/L (5-31); Bilirubin Total 0.5 mg/dL (0.0-1.0); Blood Urea Nitrogen 13 mg/dL (9-16); Carbon Dioxide 24 mmol/L (22-29); Chloride 105 mmol/L (96-108); Creatinine Clr Calc Pharmacy 57.5; Estimated Glomerular Filt Rate > 60; Glucose Random 155 mg/dL (60-115); Lactate Dehydrogenase 174 U/L (122-220); Potassium 2.8 mmol/L (3.3-5.1); Sodium 138 mmol/L (135-145); Total Protein 6.3 g/dL (6.5-8.0)
[2023-08-11] MEDS: Potassium Chloride ER 10 MEQ TABLET.ER 40 MEQ PO (06:49)
[2023-08-11 06:55] VITALS: BP 111/53; PULSE 57; RESP 16; TEMP 36.4; O2SAT 94
[2023-08-11 07:24] LABS: Glucose, Whole Blood 145 mg/dL (60-115)
[2023-08-11 08:33] LABS: Magnesium 1.8 mg/dL (1.6-2.6)
[2023-08-11] MEDS: Potassium Chloride/H20 10 MEQ/100 ML PIGGYBACK 100 MEQ IV ×4 (08:39→14:46)
[2023-08-11] MEDS: dexAMETHasone sod phosphate 4 MG/ML VIAL 6 MG IVPUSH (08:39)
[2023-08-11] MEDS: Heparin Sodium,Porcine 5,000 UNIT/ML VIAL 5000 UNIT SUBCUT ×2 (08:40→17:04)
--- NOTE | 2023-08-11 08:42 | MHC.CM.PN ---
Patient has a diagnosis of Dementia and Cognitive D/O; CM spoke with Daughter/Juanita @ [phone] and addressed IMM with her (original will be mailed certified letter to Juanita and a copy will be placed on the chart). Patient lives alone in an apartment and she required no DME [employer] SALES [employer]. Patient does have a [employer] 17 hours/week and home/resume said services is the goal. CM has initiated and will follow for dc planning. Patient does not have a HCP and appears unable to complete one r/t Confusion/Dementia, and Cognitive D/O.PCP is Dr. Janet Law. CM will follow.
[2023-08-11] MEDS: Remdesivir 200 MG in 0.9 % Sodium Chloride 210 ML 105 MG IV (08:50)
--- NOTE | 2023-08-11 09:16 | PHA.MEDREC ---
Pharmacy Consult ? Medication Reconciliation Pharmacy has completed the medication reconciliation. Spoke to pt's daughter Juanita ([phone]) to confirm meds.
[2023-08-11 12:50] LABS: Anion Gap 11 (12-20); Blood Urea Nitrogen 11 mg/dL (9-16); Calcium 8.2 mg/dL (8.4-10.2); Carbon Dioxide 23 mmol/L (22-29); Chloride 105 mmol/L (96-108); Creatinine Clr Calc Pharmacy 60.9; Estimated Glomerular Filt Rate > 60; Glucose Random 214 mg/dL (60-115); Potassium 3.7 mmol/L (3.3-5.1); Sodium 135 mmol/L (135-145)
[2023-08-11 13:46] VITALS: BP 118/61; PULSE 70; RESP 20; TEMP 36.5; O2SAT 96
[2023-08-11 13:54] VITALS: BMI 25.7
[2023-08-11 13:57] LABS: Glucose, Whole Blood 228 mg/dL (60-115)
[2023-08-11] MEDS: 0.9 % Sodium Chloride Flush 3 ML SYRINGE IVFLUSH (14:46)
[2023-08-11 15:44] VITALS: BP 118/57; PULSE 112; RESP 20; TEMP 36.8; O2SAT 96
[2023-08-11 16:33] LABS: Glucose, Whole Blood 271 mg/dL (60-115)
--- NOTE | 2023-08-11 17:00 | PM.EVENT ---
Event Note Date of Service: 08/11/23 Event Note: admitted this morning for covid 19 history obtained with assistance of family member at the bedside patient has a history of dementia, she is awake, alert and appears comfortable and is reportedly back to her baseline mental status still requiring 2L supplemental oxygen - continue remdecivir and decadron started by admitting provider - ID consult pending hypokalemia - resolved BB held on admission, will reassess need to resume. will start tele monitoring BP soft home bp meds on hold for now remainder of plan per admission H&P Time Spent With Patient Time: Total time managing care of this patient today ____ minutes.
[2023-08-11] MEDS: Acetaminophen 325 MG TABLET 975 MG PO (17:15)
[2023-08-11 19:35] VITALS: BP 118/57; PULSE 68; RESP 20; TEMP 36.4; O2SAT 94
[2023-08-11 20:34] LABS: Glucose, Whole Blood 297 mg/dL (60-115)
[2023-08-11] MEDS: Insulin Glargine,Hum.rec.anlog 100 UNIT/ML 10 ML VIAL 10 UNIT SUBCUT (20:58)
[2023-08-11 23:18] VITALS: BP 103/70; PULSE 61; RESP 18; TEMP 36.2; O2SAT 98
[2023-08-12] VITALS (8 sets, daily range): BP systolic 106–152; BP diastolic 58–72; PULSE 63–77; RESP 18–20; TEMP 36.3–37; O2SAT 92–97
[2023-08-12] MEDS: 0.9 % Sodium Chloride 1,000 ML 100 ML IVCONT ×2 (00:59→09:33)
[2023-08-12] MEDS: Heparin Sodium,Porcine 5,000 UNIT/ML VIAL 5000 UNIT SUBCUT ×3 (01:00→16:46)
[2023-08-12 07:51] LABS: Glucose, Whole Blood 200 mg/dL (60-115)
[2023-08-12 08:06] LABS: D Dimer High Sensitivity 308 NG/ML
[2023-08-12 08:18] LABS: Anion Gap 11 (12-20); Blood Urea Nitrogen 12 mg/dL (9-16); Calcium 8.2 mg/dL (8.4-10.2); Carbon Dioxide 24 mmol/L (22-29); Chloride 103 mmol/L (96-108); Creatinine Clr Calc Pharmacy 67.2; Estimated Glomerular Filt Rate > 60; Glucose Random 200 mg/dL (60-115); Potassium 3.4 mmol/L (3.3-5.1); Sodium 135 mmol/L (135-145)
[2023-08-12] MEDS: dexAMETHasone sod phosphate 4 MG/ML VIAL 6 MG IVPUSH (08:29)
[2023-08-12] MEDS: Insulin Lispro 100 UNIT/ML 3 ML VIAL SUBCUT ×4 (08:29→21:00)
[2023-08-12] MEDS: Escitalopram Oxalate 5 MG TABLET PO (08:29)
[2023-08-12] MEDS: 0.9 % Sodium Chloride Flush 3 ML SYRINGE IVFLUSH ×2 (08:29→14:41)
[2023-08-12] MEDS: Remdesivir 100 MG in 0.9 % Sodium Chloride 230 ML 115 MG IV (09:33)
--- NOTE | 2023-08-12 10:48 | HO.PM.IMPN ---
Subjective Subjective Date of Service: 08/12/23 Interval History: seen and examined this morning follow up for covid 19 still reporting cough, breathing improving Review of Systems Review of Systems: Yes all other systems are reviewed and are negative Constitutional Constitutional: Denies chills and Denies fever(s) Respiratory Respiratory: Reports cough Physical Exam Vital Signs: Vital Signs: Last Vital Signs Temp 97.3 F 08/12/23 07:29 Pulse 63 08/12/23 07:29 Resp 20 08/12/23 07:29 BP 152/69 H 08/12/23 07:29 Pulse Ox 96 08/12/23 07:29 O2 Del Method Room Air 08/12/23 07:29 O2 Flow Rate 2 08/12/23 03:35 BMI result Body Mass Index 25.7 Const: General: cooperative, comfortable, no acute distress, alert and awake Nutritional Appearance: average body habitus Orientation/consciousness: patient oriented x3 Resp: Effort & Inspection: normal respiratory effort, able to speak in complete sentences, no respiratory distress and no use of accessory muscles Cardio: Rate: regular rate GI: Inspection: No distended Palpation (GI): Soft to palpation Neuro: General: patient oriented x3, moves all extremities and CN's II-XI intact bilaterally Extrem: General: Yes no pedal edema Objective Data Active Medications Acetaminophen (Acetaminophen 325 Mg Tablet) 975 mg PO Q6H PRN PRN Reason: Fever Last Admin: 08/11/23 17:15 Dose: 975 mg Documented By: LORENA Benzonatate (Benzonatate 100 Mg Capsule) 100 mg PO TID PRN PRN Reason: Cough Dexamethasone Sodium Phosphate (Dexamethasone Sod Phosphate 4 Mg/Ml Vial) 6 mg IVPUSH DAILY [facility] Last Admin: 08/12/23 08:29 Dose: 6 mg Documented By: SRINI Dextrose (Dextrose 50 % 25 Gm/50 Ml Syringe) 25 gm IVPUSH Q15M PRN; Protocol PRN Reason: per Hypoglycemia Standing Ord. Escitalopram Oxalate (Escitalopram Oxalate 5 Mg Tablet) 5 mg PO DAILY [facility] Last Admin: 08/12/23 08:29 Dose: 5 mg Documented By: SRINI Glucose (Glucose Gel 15 Gm Gel..Gram.) 15 gm PO Q15M PRN; Protocol PRN Reason: per Hypoglycemia Standing Ord. Heparin Sodium (Porcine) (Heparin Sodium,Porcine 5,000 Unit/Ml Vial) 5,000 unit SUBCUT Q8H [facility] Last Admin: 08/12/23 08:29 Dose: 5,000 unit Documented By: SRINI Sodium Chloride (Ns) 1,000 mls @ 100 mls/hr IVCONT .Q10H [facility] Last Admin: 08/12/23 09:33 Dose: 100 mls/hr Documented By: SRINI Remdesivir 100 mg/ Sodium (Chloride) 230 mls @ 115 mls/hr IV Q24H [facility] Stop: 08/15/23 10:59 Last Admin: 08/12/23 09:33 Dose: 115 mls/hr Documented By: SRINI Insulin Glargine (Insulin Glargine,Hum.Rec.Anlog 100 Unit/Ml 10 Ml Vial) 10 unit SUBCUT BEDTIME [facility] Last Admin: 08/11/23 20:58 Dose: 10 unit Documented By: CANDACE Insulin Human Lispro (Insulin Lispro 100 Unit/Ml 3 Ml Vial) 0 unit SUBCUT QIDACHS [facility]; Protocol Last Admin: 08/12/23 08:29 Dose: 2 unit Documented By: SRINI Pat Own Med( Memantine 21 Mg Capsule,Sprinkle,Er 24hr) 21 mg PO DAILY [facility] Last Admin: 08/12/23 08:28 Dose: 21 mg Documented By: SRINI Sodium Chloride (0.9 % Sodium Chloride Flush 3 Ml Syringe) 3 ml IVFLUSH QSHIFT [facility] Last Admin: 08/12/23 08:29 Dose: 3 ml Documented By: SRINI Labs 08/11/23 05:40 08/12/23 07:03 Labs: Laboratory Results - last 24 hr 08/11/23 08/11/23 08/11/23 12:32 13:54 16:24 Hold Purple Top D-Dimer High Sensitivty Anion Gap 11 L Estim Creat Clear Calc 60.9 Estimated GFR > 60 POC Glucose 228 H 271 H Random Glucose 214 H Calcium 8.2 L 08/11/23 08/12/23 08/12/23 20:12 07:03 07:32 Hold Purple Top SEE NOTE D-Dimer High Sensitivty 308 Anion Gap 11 L Estim Creat Clear Calc 67.2 Estimated GFR > 60 POC Glucose 297 H 200 H Random Glucose 200 H Calcium 8.2 L Microbiology Microbiology Results: Microbiology 08/10/23 20:19 Blood Culture - Preliminary Blood - Venous No growth after 24 hours. 08/10/23 20:19 Blood Culture - Preliminary Blood - Venous No growth after 24 hours. Assessment and Plan (1) Acute encephalopathy: Status: Acute (2) Acute hyperglycemia: Status: Acute (3) Acute hypokalemia: Status: Acute (4) COVID: Status: Acute Plan This a 78 years old woman admitted with: Acute encephalopathy secondary to COVID-19 infection. encephalopathy resolved Continue supplemental oxygen via nasal cannula to keep oxygen saturation above 90%. continue remdesivir and Decadron wean oxygen as tolerated Sepsis secondary to COVID-19 infection sepsis resolved. lactic acid normalized with IVF blood cultures negative Elevated troponin. Likely related to demand from COVID. no chest pain Hypokalemia. resolved with replacement Type 2 diabetes mellitus. Continue Lantus and insulin sliding scale Metformin on hold due to lactic acidosis. Essential hypertension. BP has been on softer side home meds on hold mood continue lexapro mild dementia continue memantine VTE prophylaxis: Heparin subQ Code status: Full attending - dr. ortega Patient requires ongoing inpatient stay for sepsis and encephalopathy due to COVID-19 infection evaluation and treatment. Patient will required therapy with IV steroids, Supplemental oxygen, remdesivir in IV fluids. Quality Stroke Does the patient have a stroke diagnosis?: No VTE Prior VTE?: No VTE Risk Level:: Medical - moderate - high VTE Device Contraindication: Treatment Not Indicated VTE Drug Contraindication: N/A - Med Ordered
--- NOTE | 2023-08-12 11:04 | P.CDIM_ITS ---
PROVIDER RESPONSE TEXT: To clarify, the appropriate diagnosis supported by the clinical indicators: Toxic metabolic QUERY TEXT: PHYSICIAN'S DOCUMENTATION REQUEST Date of Query: 08/12/2023 07:42 AM EST Patient Name: Noelle Collins Admit Date: 08/11/2023 Dear Janet Barajas, A review of the medical record indicates additional documentation may be needed. Please review below and update the documentation accordingly. Clinical Indicators: H&P: Acute encephalopathy secondary to Covid-19 infection ED: patient seems ill, weak and more confused than usual. Based on the above, please further specify, in the Progress Notes, the known or suspected type of the documented encephalopathy: Metabolic Septic Toxic Toxic metabolic Other (explain) Clinically unable to determine (explain) Thank you, Valerie Andrade, CCS, CDIS Use of terms such as suspected, likely, concern for, or probable (associated with a specific diagnosi s that is being evaluated, monitored, or treated as if it exists) are acceptable and can be coded in the inpatient se tting, when documented at the time of discharge. Please use your independent medical judgment in providing your response. THIS QUERY IS PART OF THE PERMANENT MEDICAL RECORD
--- NOTE | 2023-08-12 11:08 | P.CDIM_ITS ---
PROVIDER RESPONSE TEXT: To clarify, the appropriate diagnosis supported by the clinical indicators: Diabetes mellitus Type 2 with hyperglycemia: due to steroids QUERY TEXT: PHYSICIAN'S DOCUMENTATION REQUEST Date of Query: 08/12/2023 07:47 AM EST Patient Name: Noelle Collins Admit Date: 08/11/2023 Dear Janet Barajas, A review of the medical record indicates additional documentation may be needed. Please review below and update the documentation accordingly. Clinical Indicators: LABS: POC glucose 306 H Please clarify the following regarding the Complications of Diabetes Mellitus (DM): Diabetes mellitus Type 2 with hyperglycemia resolved, possible, suspected, probable etc. Other (explain) Clinically unable to determine (explain) Thank you, Valerie Andrade, CCS, CDIS Use of terms such as suspected, likely, concern for, or probable (associated with a specific diagnosi s that is being evaluated, monitored, or treated as if it exists) are acceptable and can be coded in the inpatient se tting, when documented at the time of discharge. Please use your independent medical judgment in providing your response. THIS QUERY IS PART OF THE PERMANENT MEDICAL RECORD
[2023-08-12 11:47] LABS: Glucose, Whole Blood 266 mg/dL (60-115)
--- NOTE | 2023-08-12 13:06 | MHC.CM.PN ---
EMR reviewed and per MD rounds, pt is not medically cleared for D/C due to management of covid-19 infection. PT is recommending home with family support at D/C. CM will continue to follow.
[2023-08-12 16:13] LABS: Glucose, Whole Blood 349 mg/dL (60-115)
--- NOTE | 2023-08-12 16:20 | W.PM.IDCN ---
History of Present Illness Data of Consult Service Date: 08/12/23 Requesting physician: Janet Barajas Primary Care Provider: Janet Law MD HPI Reason for consult: COVID She presents with cough and weakness and confusion for a day. She has COVID positivity. She was started on Dexamethasone and Remdesivir. She is not hypoxic below 93% Review of Systems Review of Systems: Yes Unobtainable due to mental condition PMFSH Past Medical History Medical History Confusion Left optic neuropathy Fibroids Combined hyperlipidemia Diabetes HTN (hypertension) Anxiety Depression Family History Family History Mother Diabetes Cancer Family history: reviewed and not pertinent Surgical History Surgical History H/O: hysterectomy Social History Social History Household Members: None Housing: Apartment Do you presently have visiting nurse or other home services: Yes (grandson = [employer]) Alcohol intake: never Comment: family member in room Patient Tobacco Use Status: Never used Tobacco e-Cigarette/Vaping Use: Never Used Second Hand Smoke Exposure: No service: No Meds Allergies Allergy/AdvReac Type Severity Reaction Status Date / Time codeine [Codeine] Allergy Severe PASSED OUT Verified 08/11/23 01:08 Penicillins Allergy Unknown Verified 08/11/23 01:08 Active Medications: Current Medications Acetaminophen (Acetaminophen 325 Mg Tablet) 975 mg PO Q6H PRN PRN Reason: Fever Last Admin: 08/11/23 17:15 Dose: 975 mg Benzonatate (Benzonatate 100 Mg Capsule) 100 mg PO TID PRN PRN Reason: Cough Dextrose (Dextrose 50 % 25 Gm/50 Ml Syringe) 25 gm IVPUSH Q15M PRN; Protocol PRN Reason: per Hypoglycemia Standing Ord. Escitalopram Oxalate (Escitalopram Oxalate 5 Mg Tablet) 5 mg PO DAILY [facility] Last Admin: 08/12/23 08:29 Dose: 5 mg Glucose (Glucose Gel 15 Gm Gel..Gram.) 15 gm PO Q15M PRN; Protocol PRN Reason: per Hypoglycemia Standing Ord. Heparin Sodium (Porcine) (Heparin Sodium,Porcine 5,000 Unit/Ml Vial) 5,000 unit SUBCUT Q8H [facility] Last Admin: 08/12/23 08:29 Dose: 5,000 unit Remdesivir 100 mg/ Sodium (Chloride) 230 mls @ 115 mls/hr IV Q24H [facility] Stop: 08/13/23 10:59 Last Infusion: 08/12/23 11:44 Dose: Infused Insulin Glargine (Insulin Glargine,Hum.Rec.Anlog 100 Unit/Ml 10 Ml Vial) 10 unit SUBCUT BEDTIME [facility] Last Admin: 08/11/23 20:58 Dose: 10 unit Insulin Human Lispro (Insulin Lispro 100 Unit/Ml 3 Ml Vial) 0 unit SUBCUT QIDACHS [facility]; Protocol Last Admin: 08/12/23 11:57 Dose: 6 unit Pat Own Med( Memantine 21 Mg Capsule,Sprinkle,Er 24hr) 21 mg PO DAILY [facility] Last Admin: 08/12/23 08:28 Dose: 21 mg Sodium Chloride (0.9 % Sodium Chloride Flush 3 Ml Syringe) 3 ml IVFLUSH QSHIFT [facility] Last Admin: 08/12/23 14:41 Dose: 3 ml Home Medications Medication Instructions Recorded Confirmed Last Taken Type atenolol 50 mg-chlorthalidone 25 1 tab PO DAILY 09/02/22 08/11/23 08/10/23 History mg tablet (Tenoretic) metformin 500 mg tablet 500 mg PO DAILY 09/02/22 08/11/23 08/10/23 History acetaminophen 325 mg tablet 650 mg PO Q6H PRN Pain 08/11/23 08/11/23 Unknown History (Tylenol) amlodipine 10 mg tablet 10 mg PO DAILY 08/11/23 08/11/23 08/10/23 History ibuprofen 200 mg tablet 400 mg PO Q8H PRN Pain 08/11/23 08/11/23 Unknown History insulin glargine 100 unit/mL (3 10 unit subcut BEDTIME 08/11/23 08/11/23 08/10/23 History mL) subcutaneous pen (Lantus Solostar U-100 Insulin) sitagliptin phosphate 25 mg tablet 25 mg PO DAILY 08/11/23 08/11/23 08/10/23 History (Januvia) Physical Exam Vital Signs: Vital Signs: Last Vital Signs Temp 98.6 F 08/12/23 15:24 Pulse 71 08/12/23 15:24 Resp 18 08/12/23 15:24 BP 133/66 08/12/23 15:24 Pulse Ox 94 08/12/23 15:24 O2 Del Method Room Air 08/12/23 15:24 O2 Flow Rate 2 08/12/23 03:35 BMI result Body Mass Index 25.7 Const: General: cooperative HEENT: Head: Yes normal to inspection Face and sinus: Yes normal facial exam Mouth: Normal oral and palatal mucosa present Teeth and gingiva: dentition normal Eyes: General: appearance normal, both eyes and all related structures Pupils: Equal, round and reactive pupils present Resp: Effort & Inspection: normal respiratory effort Cardio: Rate: regular rate Rhythm: regular rhythm GI: Palpation (GI): Soft to palpation and nontender : General: Yes no CVA tenderness Back/Spine/Pelvis: Back: no CVA tenderness Skin: General skin exam: no rashes or lesions noted Neuro: General: moves all extremities Cranial nerves: Yes Equal, round and reactive pupils present Extrem: General: Yes normal to inspection Psych: Appearance: grossly normal Results Labs 08/11/23 05:40 08/12/23 07:03 Labs: BMP 08/12/23 07:03 Sodium 135 Potassium 3.4 Chloride 103 Carbon Dioxide 24 BUN 12 Creatinine 0.60 Calcium 8.2 L Microbiology Microbiology Results: Microbiology 08/10/23 20:19 Blood - Venous Blood Culture - Preliminary No growth after 24 hours. 08/10/23 20:19 Blood - Venous Blood Culture - Preliminary No growth after 24 hours. Assessment and Plan (1) Acute encephalopathy: Status: Acute (2) COVID: Status: Acute Plan COVID encephalopathy. There is no hypoxia. Would stop Dexamethasone as not hypoxic. Remdesivir for 3 days help prevent severe disease.
[2023-08-12 20:21] LABS: Glucose, Whole Blood 345 mg/dL (60-115)
[2023-08-12] MEDS: Insulin Glargine,Hum.rec.anlog 100 UNIT/ML 10 ML VIAL 10 UNIT SUBCUT (21:00)
[2023-08-12] MEDS: Benzonatate 100 MG CAPSULE PO (21:02)
[2023-08-13] MEDS: 0.9 % Sodium Chloride Flush 3 ML SYRINGE IVFLUSH ×2 (00:01→08:25)
[2023-08-13 03:19] VITALS: BP 135/60; PULSE 66; RESP 18; TEMP 36.2; O2SAT 93
[2023-08-13 07:25] VITALS: BP 134/68; PULSE 64; RESP 18; TEMP 37.2; O2SAT 62
[2023-08-13 07:45] LABS: Glucose, Whole Blood 183 mg/dL (60-115)
[2023-08-13] MEDS: Insulin Lispro 100 UNIT/ML 3 ML VIAL SUBCUT ×2 (08:25→13:15)
[2023-08-13] MEDS: Heparin Sodium,Porcine 5,000 UNIT/ML VIAL 5000 UNIT SUBCUT (08:26)
[2023-08-13] MEDS: Escitalopram Oxalate 5 MG TABLET PO (08:26)
--- NOTE | 2023-08-13 08:53 | P.PNIM_ITS ---
Subjective Subjective Date of Service: 08/13/23 Interval History: seen and examined this morning follow up for covid 19 still reporting cough, breathing improving Review of Systems Review of Systems: Yes all other systems are reviewed and are negative Physical Exam 2 Vital Signs: Vital Signs: Last Vital Signs Temp 98.9 F 08/13/23 07:25 Pulse 64 08/13/23 07:25 Resp 18 08/13/23 07:25 BP 134/68 08/13/23 07:25 Pulse Ox 62 L 08/13/23 07:25 O2 Del Method Room Air 08/13/23 07:25 O2 Flow Rate 2 08/12/23 03:35 BMI result Body Mass Index 25.7 Objective Data Active Medications Acetaminophen (Acetaminophen 325 Mg Tablet) 975 mg PO Q6H PRN PRN Reason: Fever Last Admin: 08/11/23 17:15 Dose: 975 mg Documented By: LORENA Benzonatate (Benzonatate 100 Mg Capsule) 100 mg PO TID PRN PRN Reason: Cough Last Admin: 08/12/23 21:02 Dose: 100 mg Documented By: NIKKI Dextrose (Dextrose 50 % 25 Gm/50 Ml Syringe) 25 gm IVPUSH Q15M PRN; Protocol PRN Reason: per Hypoglycemia Standing Ord. Escitalopram Oxalate (Escitalopram Oxalate 5 Mg Tablet) 5 mg PO DAILY [facility] Last Admin: 08/13/23 08:26 Dose: 5 mg Documented By: SRIRAM Glucose (Glucose Gel 15 Gm Gel..Gram.) 15 gm PO Q15M PRN; Protocol PRN Reason: per Hypoglycemia Standing Ord. Heparin Sodium (Porcine) (Heparin Sodium,Porcine 5,000 Unit/Ml Vial) 5,000 unit SUBCUT Q8H [facility] Last Admin: 08/13/23 08:26 Dose: 5,000 unit Documented By: SRIRAM Remdesivir 100 mg/ Sodium (Chloride) 230 mls @ 115 mls/hr IV Q24H [facility] Stop: 08/13/23 10:59 Last Infusion: 08/12/23 11:44 Dose: Infused Documented By: SRINI Insulin Glargine (Insulin Glargine,Hum.Rec.Anlog 100 Unit/Ml 10 Ml Vial) 10 unit SUBCUT BEDTIME [facility] Last Admin: 08/12/23 21:00 Dose: 10 unit Documented By: NIKKI Insulin Human Lispro (Insulin Lispro 100 Unit/Ml 3 Ml Vial) 0 unit SUBCUT QIDACHS [facility]; Protocol Last Admin: 08/13/23 08:25 Dose: 2 unit Documented By: SRIRAM Pat Own Med( Memantine 21 Mg Capsule,Sprinkle,Er 24hr) 21 mg PO DAILY [facility] Last Admin: 08/13/23 08:27 Dose: 21 mg Documented By: SRIRAM Sodium Chloride (0.9 % Sodium Chloride Flush 3 Ml Syringe) 3 ml IVFLUSH QSHIFT [facility] Last Admin: 08/13/23 08:25 Dose: 3 ml Documented By: SRIRAM Labs 08/11/23 05:40 08/12/23 07:03 Labs: Laboratory Results - last 24 hr 08/12/23 08/12/23 08/12/23 11:27 15:59 20:17 POC Glucose 266 H 349 H 345 H 08/13/23 07:23 POC Glucose 183 H Microbiology Microbiology Results: Microbiology 08/10/23 20:19 Blood Culture - Preliminary Blood - Venous No growth after 48 hours. 08/10/23 20:19 Blood Culture - Preliminary Blood - Venous No growth after 48 hours. Quality Stroke Does the patient have a stroke diagnosis?: No VTE Prior VTE?: No VTE Risk Level:: Medical - moderate - high VTE Device Contraindication: Treatment Not Indicated VTE Drug Contraindication: N/A - Med Ordered
[2023-08-13] MEDS: Remdesivir 100 MG in 0.9 % Sodium Chloride 230 ML 115 MG IV (10:07)
[2023-08-13 12:00] VITALS: BP 129/60; PULSE 67; RESP 16; TEMP 36.1; O2SAT 94
[2023-08-13 12:11] LABS: Glucose, Whole Blood 236 mg/dL (60-115)
--- NOTE | 2023-08-13 13:20 | P.DS_ITS ---
DS: Providers Provider Date of Service: 08/13/23 Date of admission: 08/11/23 00:35 Date of discharge: 08/13/23 Primary care physician: Janet Law MD Attending physician on admission: Tonio Seo Consults: 08/11/23 08:03 Consult to Infectious Diseases Routine Consulting Provider: [facility] Infectious Disease Reason for consultation: covid 19 Has provider been notified: No Attending physician on discharge: Katlyn Rizzo Discharging clinician: Shaniqua Barnett DS: Diagnosis Discharge Diagnosis (1) Acute encephalopathy: Status: Acute (2) COVID: Status: Acute DS: Summary Hospital Course Hospital Course: HPI on admission by Dr. Anjel Seo on 08/11: Chief Complaint: Confusion Noelle Collins is a 78 years old woman with past medical history significant for dementia, type 2 diabetes mellitus on insulin and metformin was brought emergency department due to worsening confusion and lethargic. HPI was provided by patient's family who were at bedside. Family member stated that the patient has been coughing and vomiting. No diarrhea has been observed and the patient has not been complaining of abdominal pain. In the ED, she was found to have fever, 100.9. There is no hypotension. According to ED patient has been having episode of low oxygen saturation. She is currently on 2 liters/minute of supplemental oxygen via nasal cannula and satting at 95%. Blood workup is remarkable for leukocytosis of 16.1. Potassium liver is 2.8. Her blood glucose was 422 initially but after receiving insulin her most recent glucose level dropped to 235. Corrected sodium is 141. Her initial lactic acid was 4.0. Latest lactic acid is 2.1. Troponin is elevated x2 ( 43.6, 44.6). Urinalysis dated showed urinary tract infection. Viral testing came back positive for COVID-19. CXR is negative. ED tx: KCL 40 mEq IV, acetaminophen 650 mg p.o. x1, ceftriaxone 1 g IV, azithromycin 500 mg IV x1, normal saline 1 L bolus, Lantus 12 units subQ. Hospital course: [facility] on airborne/contact precautions due to COVID-19 infection with sepsis and associated metabolic encepahalopathy and acute hypoxemic respiratory failure. She was treated with IV decadron and IV remdesivir given her hypoxia with resolution of encephalopathy. She was successfully weaned from supplemental O2 and dexamethasone was discontinued. She completed 3 day course remdesivir. CXR showed no evidence of pneumonia. Initial leukocytosis 16.1 resolved. Potassium level initially 2.8, resolved following repletion. Acute lactic acidosis resolved following IVF, likely r/t hypovolemia from poor PO intake and metformin use, less likely severe sepsis. Blood cultures negative to date. Antibiotic therapy not indicated. Course was complicated by steroid induced hyperglycemia, managed with lantus and sliding scale insulin. Metformin on hold due to lactic acidosis, but resume on discharge. Antihypertensives held due to soft blood pressures which have improved. Can resume on discharge. Continue all other home medications. Seen by PT recommending discharge home with family support. Pt has robust family support and [employer] services. Follow up with PCP. Acute encephalopathy and acute hypoxemic respiratory failure secondary to COVID- 19 infection. encephalopathy resolved Weaned from supplemental O2 Completed remdesivir x 3 days. Dexamethasone dc'd given resolution of hyopoxia Sepsis secondary to COVID-19 infection sepsis resolved. lactic acid normalized with IVF blood cultures negative Elevated troponin. Likely related to demand from COVID. no chest pain Hypokalemia. resolved with replacement Type 2 diabetes mellitus with steroid induced hyperglycemia Continue Lantus and insulin sliding scale Resume metformin on dc Essential hypertension. resume home meds on dc mood continue lexapro mild dementia continue memantine Status at Discharge Functional status at discharge: independent ambulation Overall status at discharge: patient is progressing back to baseline Time Attestation Discharge coordination time: Greater than 30 minutes Quality: Safe Use of Opioids Does Pt have an Active Cancer Diagnosis on the Problem List?: No Quality: Stroke Does the patient have a stroke diagnosis?: No Physical Exam Vital Signs: Vital Signs: Last Vital Signs Temp 98.9 F 08/13/23 07:25 Pulse 64 08/13/23 07:25 Resp 18 08/13/23 07:25 BP 134/68 08/13/23 07:25 Pulse Ox 62 L 08/13/23 07:25 O2 Del Method Room Air 08/13/23 07:25 O2 Flow Rate 2 08/12/23 03:35 BMI result Body Mass Index 25.7 Constitutional - Awake and Alert, No apparent distress Eyes - PERRLA, EOMI Cardiovascular - S1S2, RRR, No edema Respiratory - Normal lung expansion, Normal respiratory effort, No respiratory distress, CTA bilaterally Gastrointestinal - NT / ND; +BS; No rebound or guarding Extremities - no calf tenderness bilaterally, no swelling Skin - Warm/Dry Neurological - Alert & oriented x3 Psychological - Appropriate affect DS: Data Data Completed and Pending Labs on day of discharge: Laboratory Results - last 24 hr 08/12/23 08/12/23 08/13/23 15:59 20:17 07:23 POC Glucose 349 H 345 H 183 H 08/13/23 11:56 POC Glucose 236 H Preliminary micro results at discharge 08/10/23 20:19 Blood Culture - Preliminary Blood - Venous No growth after 48 hours. 08/10/23 20:19 Blood Culture - Preliminary Blood - Venous No growth after 48 hours. Discharge Plan Discharge Anticipated Discharge Date/Time: 08/13/23 13:37 Patient Disposition: Home, Self-Care Discharge Diagnosis: Acute hypoxemic respiratory failure and metabolic encephalopathy due to COVID-19, hypokalemia, hyperglycemia due to steroids Referrals: Janet Law MD [Primary Care Provider] - 1 Week Discharge Medications: New (DME) FreeStyle Lite Strips Strip Qty: 100 0RF Rx Instructions: Test four times a day or as directed. (DME) blood-glucose meter [FreeStyle Lite Meter] Kit Qty: 1 0RF Rx Instructions: As Directed alcohol swabs Pads, Medicated 1 pad TOPICAL QIDACHS Qty: 100 0RF Rx Instructions: Use four times a day or as directed. insulin lispro [Humalog KwikPen Insulin] 100 unit/mL insulin pen See Rx Instructions .ROUTE .COMPLEX Qty: 15 0RF Rx Instructions: Blood Sugar: <150 - 0 units 151-200 - 2 units 201-250 - 4 units 251-300 - 6 units 301-350 - 8 units >350 - 10 units (DME) pen needle, diabetic 32 gauge x 1/4 needle Qty: 100 0RF Rx Instructions: Use four times a day or as directed. (DME) lancets [FreeStyle Lancets] 28 gauge misc Qty: 100 0RF Rx Instructions: Test four times a day or as directed. Continued citalopram 10 mg tablet 10 mg PO DAILY Qty: 30 6RF memantine 21 mg capsule,sprinkle,ER 24hr 21 mg PO DAILY Qty: 30 2RF amlodipine 10 mg tablet 10 mg PO DAILY Januvia 25 mg tablet 25 mg PO DAILY insulin glargine [Lantus Solostar U-100 Insulin] 100 unit/mL (3 mL) insulin pen 10 unit subcut BEDTIME acetaminophen [Tylenol] 325 mg Tablet 650 mg PO Q6H PRN (Reason: Pain) ibuprofen 200 mg Tablet 400 mg PO Q8H PRN (Reason: Pain) metformin 500 mg tablet 500 mg PO DAILY atenolol-chlorthalidone [Tenoretic 50] 50-25 mg tablet 1 tab PO DAILY Discharge Orders: Discharge Order (Routine); Ordered 08/13/23 Ordered By: Shaniqua Barnett Diet: Advance to usual diet Activity on Discharge: As tolerated Stand Alone Forms: Patient Portal Discharge page Care Plan Goals: See below Health Concerns: COVID19 with acute hypoxemic respiratory failure and metabolic encephalopathy Hypokalemia Steroid induced hyperglycemia Plan of Treatment: COVID 19 -Treated with IV remdesivir (antiviral) and dexamethasne (steroid) -weaned from supplemental O2, encephalopathy/confusion resolved -Continue with isolation precautions for a total of 10 days from symptoms onset Hypokalemia -potassium levels were low likely due to COVID-19/remdesivir use -resolved Steroid induced hyperglycemia -Continue lantus 10 units at bedtime -Check glucose with meals and at bedtime. Administer fast acting insulin (humalog) based on glucose reading to better manage hyperglycemia -Resume metformin on discharge Assessment: See above. See discharge summary Discharge Date/Time: 08/13/23 15:01
--- NOTE | 2023-08-13 14:03 | MHC.CM.PN ---
Pt has been medically cleared for DC. She will go home via family to transport her and she will resume her prior home care services.
== END 2023-08-13 15:01 | disposition home or self-care (01) | DRG 871 ==
LOC: HO.ED 08-11 00:32 → HO.EDOVER 08-11 00:41 → HO.IMC 08-11 12:35
PROVIDERS: Physician Assistant Medical; Admitting Provider Internal Medicine; Emergency Provider Emergency Medicine; PCP Family Medicine; Visit Provider Physician Assistant
DX: A41.89 Other specified sepsis (principal); G92.8 Other toxic encephalopathy; U07.1 COVID-19; J96.01 Acute respiratory failure with hypoxia; F03.90 Unspecified dementia, unspecified severity, without behavioral disturbance, psychotic disturbance, mood disturbance, and anxiety; I10 Essential (primary) hypertension; R00.1 Bradycardia, unspecified; E87.6 Hypokalemia; E11.65 Type 2 diabetes mellitus with hyperglycemia; E78.2 Mixed hyperlipidemia; Z79.4 Long term (current) use of insulin; Z79.84 Long term (current) use of oral hypoglycemic drugs; Z79.899 Other long term (current) drug therapy
CPT/HCPCS: 0241U; 36415; 71045; 80048; 80053; 81001; 82947; 83605; 83615; 83735; 84484; 85025; 85379; 86140; 87040; 93005; 97162; 99285; J0248; J0456; J0696; J1100; J1644; J3480

== ENCOUNTER → 2023-08-10 19:52 | Outpatient (BNV) | payer OTHER, SELFPAY | PROVIDERS: Admitting Provider Internal Medicine; Emergency Provider Emergency Medicine; PCP Family Medicine; Visit Provider Internal Medicine Cardiovascular Disease | DX: I49.3 Ventricular premature depolarization (principal); R94.31 Abnormal electrocardiogram [ECG] [EKG] | CPT/HCPCS: 93010 ==

== ENCOUNTER → 2023-08-11 00:35 | Outpatient (BNV) | payer OTHER, SELFPAY | PROVIDERS: Admitting Provider Internal Medicine; Emergency Provider Emergency Medicine; PCP Family Medicine; Visit Provider Internal Medicine | DX: U07.1 COVID-19 (principal); G93.40 Encephalopathy, unspecified; R65.20 Severe sepsis without septic shock | CPT/HCPCS: 99223; 99232; 99239; 99499 ==

== ENCOUNTER → 2023-08-11 00:35 | Outpatient (BNV) | payer OTHER, SELFPAY | PROVIDERS: Admitting Provider Internal Medicine; Emergency Provider Emergency Medicine; PCP Family Medicine; Visit Provider Internal Medicine | DX: G93.40 Encephalopathy, unspecified (principal); U07.1 COVID-19 | CPT/HCPCS: 99222 ==

== ENCOUNTER 2024-01-24 17:12 | Outpatient (REF) | payer OTHER, SELFPAY | END 2024-01-24 17:13 | disposition home or self-care (01) | LOC: HO.HHCLNP 17:12 | PROVIDERS: Visit Provider Nurse Practitioner Family | DX: R35.0 Frequency of micturition (principal) | CPT/HCPCS: 87086 ==

== ENCOUNTER 2025-04-10 12:15 | Emergency (ER) | payer MEDICARE, SELFPAY ==
--- NOTE | ~2025-04-10 | CT_ITS ---
EXAMINATION: CT HEAD WITHOUT CONTRAST CLINICAL INFORMATION: Trauma COMPARISON: MRI on December 12, 2022 TECHNIQUE: Contiguous axial imaging was performed from the skull base to vertex without intravenous administration of contrast. This CT examination was performed using dose optimization techniques as appropriate, variously including the following: *Automated exposure control *Adjustment of mA and/or kV according to patient size (this includes techniques or standardized protocols for targeted exams where dose is matched to indication/reason for exam; i.e. extremities or head) *Use of iterative reconstruction technique DLP: 633 mGY*cm FINDINGS: There is no acute ischemic change. Periventricular white matter hypodensities are present There is no intracranial hemorrhage. There is no mass-effect or midline shift. Basal cisterns and ventricles are within normal limits for age/cerebral volume. Orbits are symmetrical and unremarkable. Paranasal sinuses and mastoid air cells are pneumatized. There are no bony abnormalities. CT/CT head/brain wo IV con IMPRESSION: No acute intracranial abnormality. Chronic white matter changes likely related to small vessel disease. Electronically signed by: Klaus Reardon MD 04/10/2025 03:47 PM EDT
--- NOTE | ~2025-04-10 | XR_ITS ---
EXAMINATION: XR CHEST CLINICAL INFORMATION: ? pneumonia COMPARISON: August 10, 2023 TECHNIQUE: 2 views of the chest were obtained. FINDINGS: There is new vague opacity in the right perihilar lung, probably in the right upper lobe. Lungs are clear otherwise. Heart size is normal. There is no pleural effusion. XR/XR chest 2V IMPRESSION: Suspect right upper lobe pneumonia. Electronically signed by: Klaus Reardon MD 04/10/2025 04:28 PM EDT
--- NOTE | ~2025-04-10 | CT_ITS ---
EXAMINATION: CT CERVICAL SPINE WITHOUT CONTRAST CLINICAL INFORMATION: Trauma COMPARISON: None available. TECHNIQUE: Axial imaging was performed from the base of the skull through T2 without IV contrast. Coronal and sagittal reformatted images were generated from the original axial data set. ALARA: The examination used one or more of the following radiation dose reduction techniques: Automated exposure control, iterative reconstruction, and/or adjustment of mA and/or KV. DLP: 240 mGY*cm FINDINGS: Pyrophosphate deposition is present in the transverse ligament posterior to the dens and in multiple discs. Moderate disc space narrowing and degenerative endplate irregularity is present at C3-4 through C6-7. There are also uncovertebral and facet osteophytes. There is straightening of cervical lordosis. There is no prevertebral soft tissue swelling. There is focal opacity in the anterior right apex and groundglass density in the posterior left apex of the lungs. CT/CT cervical spine wo IV con IMPRESSION: There is straightening of the expected cervical lordosis. This can be idiopathic, but can also be related to degenerative change, muscle spasm, or posterior soft tissue injury. 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 Follow-up to radiographic resolution to exclude an obscured pulmonary nodule. Electronically signed by: Klaus Reardon MD 04/10/2025 03:52 PM EDT
[2025-04-10 12:28] VITALS: BP 121/73; PULSE 67; PULSE 68; RESP 16; TEMP 36.9; O2SAT 92; O2SAT 95; BMI 22.3
[2025-04-10 12:29] VITALS: BP 121/73; TEMP 36.9
--- NOTE | 2025-04-10 12:37 | ECG_ITS ---
Test Reason : FALL Blood Pressure : */* mmHG Vent. Rate : 67 BPM Atrial Rate : 67 BPM P-R Int : 144 ms QRS Dur : 96 ms QT Int : 450 ms P-R-T Axes : 0 -30 37 degrees QTcB Int : 475 ms Normal sinus rhythm Left axis deviation Minimal voltage criteria for LVH, may be normal variant ( [place] product ) Nonspecific T wave abnormality Abnormal ECG When compared with ECG of 10-Aug-2023 19:52, Premature ventricular complexes are no longer Present T wave inversion no longer evident in Lateral leads Referred By: Giles Hurley Electronically Signed By: SARKIS KAUFMAN MD
--- NOTE | 2025-04-10 12:49 | ED.FALL ---
HPI - Fall General Chief Complaint: Fall Stated Complaint: fall,injury lt eye,pain lt rib, dementia Time Seen by Provider: 04/10/25 12:20 Source: family Mode of arrival: EMS History of Present Illness HPI Narrative: This is 79 years old the patient with a history of dementia brought in by ambulance because fall. The son found the patient in the floor. The patient is unable to give any history because of the demands she is awake and alert no complaint of extremity pain she has a mild headache MD complaint: fall Onset (ago): hour(s) (1) Fall from: other (unknown) Place fall occurred: home Loss of consciousness: none Prolonged down time: no Symptoms prior to fall: other (unknown) Related Data Home Medications ?Medication ?Instructions ?Recorded ?Confirmed atenolol 50 mg-chlorthalidone 25 1 tab PO DAILY 09/02/22 08/11/23 mg tablet (Tenoretic) metformin 500 mg tablet 500 mg PO DAILY 09/02/22 08/11/23 acetaminophen 325 mg tablet 650 mg PO Q6H PRN Pain 08/11/23 08/11/23 (Tylenol) amlodipine 10 mg tablet 10 mg PO DAILY 08/11/23 08/11/23 ibuprofen 200 mg tablet 400 mg PO Q8H PRN Pain 08/11/23 08/11/23 insulin glargine 100 unit/mL (3 10 unit subcut BEDTIME 08/11/23 08/11/23 mL) subcutaneous pen (Lantus Solostar U-100 Insulin) sitagliptin phosphate 25 mg tablet 25 mg PO DAILY 08/11/23 08/11/23 (Januvia) Previous Rx's ?Medication ?Instructions ?Recorded alcohol swabs 1 pad topical QIDACHS #100 ea 08/13/23 blood sugar diagnostic (FreeStyle #100 ea 08/13/23 Lite Strips) blood-glucose meter (FreeStyle #1 ea 08/13/23 Lite Meter kit) insulin lispro 100 unit/mL See Rx Instructions .Route 08/13/23 subcutaneous pen (Humalog KwikPen .COMPLEX #15 mL (U-100) Insulin) lancets 28 gauge (FreeStyle #100 ea 08/13/23 Lancets) pen needle, diabetic 32 gauge x #100 ea 08/13/2308/04 insulin lispro 100 unit/mL 1 sliding scale dose subcut 09/02/23 subcutaneous pen (Humalog DoniPen MARLONDACHS #15 mL (U-100) Insulin) citalopram 10 mg tablet 10 mg PO DAILY #30 tabs 04/20/24 memantine 21 mg capsule 21 mg PO DAILY #30 caps 01/07/25 sprinkle,extended release 24hr doxycycline monohydrate 100 mg 100 mg PO BID 5 days #10 caps 04/10/25 capsule Allergies Allergy/AdvReac Type Severity Reaction Status Date / Time codeine (Codeine) Allergy Severe PASSED OUT Verified 04/10/25 12:35 Penicillins Allergy Unknown Verified 04/10/25 12:35 Review of Systems Review of Systems: Yes Unobtainable due to mental condition (dementia) [facility] Past Medical History [facility] Narrative: Patient has a history of dementia hyperlipidemia diabetes hypertension Medical History Confusion Left optic neuropathy Fibroids Combined hyperlipidemia Diabetes HTN (hypertension) Anxiety Depression Surgical History H/O: hysterectomy Family History Family History Mother Diabetes Cancer Social History Social History Household Members: None Housing: Apartment Do you presently have visiting nurse or other home services: Yes (grandson = [employer]) Alcohol intake: never Comment: family member in room Patient Tobacco Use Status: Never used Tobacco Smoked in Last 30 Days: No e-Cigarette/Vaping Use: Never Used Second Hand Smoke Exposure: No Use of substances other than those prescribed or required for medical reasons: No Advance Directives: No Advance Directives Information Provided: Yes service: No Physical Exam Exam: Exam: She looks well she is not in distress she knows that she is at the hospital Vital Signs: Vital Signs: Last Vital Signs Temp 98.5 F 04/10/25 12:29 Pulse 69 04/10/25 16:28 Resp 18 04/10/25 16:28 BP 131/61 04/10/25 16:28 Pulse Ox 92 04/10/25 16:28 O2 Del Method Room Air 04/10/25 16:28 BMI result Body Mass Index 22.3 Const: General: cooperative Nutritional Appearance: well nourished Limitations: no limitations HEENT: Head: Yes normal to inspection General nose exam: Normal external nose present Face and sinus: Yes normal facial exam Neck: Neck: Yes normal visual inspection Chest: Chest palpation & inspection: normal inspection of the chest Resp: Effort & Inspection: normal respiratory effort Cardio: Jugular venous distension: no JVD Rate: regular rate Rhythm: regular rhythm GI: Inspection: Yes normal to inspection Palpation (GI): Soft to palpation, not firm and nontender Auscultation: normal bowel sounds Skin: General skin exam: no rashes or lesions noted Lesions: no lesions Rashes: no rashes Neuro: Cranial nerves: Yes CN's II-XII intact bilaterally Motor exam (neuro): 5/5 motor strength present throughout Course Reevaluation(s) Reevaluation #1: C-spine negative for fracture, ? rt apical density? pneumonia will get CXR Head ct negative Signed out to Dr Hernandez Time: 16:07 Reevaluation #2: I reviewed all lab work, patient was signed out to me to follow-up on a chest x-ray secondary to a combination of a noted leukocytosis as well as questionable pneumonia visualized on the head imaging study. In fact, my interpretation is in agreement with radiology's impression that there is evidence to suggest a right upper lobe pneumonia, patient is not hypoxic and otherwise appears well nontoxic and will be discharged on a 5 day course of antibiotics with instructions to follow-up with her primary care doctor. Time: 16:48 Medications Administered Discontinued Medications Generic Name Dose Route Start Last Admin Trade Name Freq PRN Reason Stop Dose Admin Potassium Chloride 40 meq 04/10/25 16:07 04/10/25 16:35 Potassium Chloride Er 20 Meq Tab.Er.Prt PO 04/10/25 16:08 40 meq ONCE ONE Administration Medical Decision Making Medical Decision Making [facility] Narrative: Patient was brought here after a fall she is unable to give a history we will go ahead and check labs imaging Differential Diagnosis Differential Diagnoses: The differential diagnosis associated with the presentation includes Subdural hematoma/cervical spine fracture/hyponatremia/hypoglycemia /UTI Admission/Observation Consideration of admission/observation: Escalation of care including admission/observation considered Lab Data 04/10/25 12:37 04/10/25 12:37 Labs: Lab Results 04/10/25 Range/Units 12:37 WBC 12.8 H (4.8-10.8) X10*3/uL RBC 4.95 D (4.20-5.50) X10*6/uL Hgb 14.8 (12.0-16.0) g/dl Hct 41.4 (37.0-47.0) % MCV 83.6 (80.0-98.0) fL MCH 29.9 (27.0-33.0) pg MCHC 35.7 H (31.0-35.0) g/dl RDW 12.2 (11.0-16.0) % Plt Count 371 D (160-400) X10*3/uL MPV 8.7 L (9.4-12.3) fL Immature Gran % (Auto) 0.5 H (0.0-0.4) % Neut % (Auto) 78.1 H (45-73) % Lymph % (Auto) 10.4 L (20-40) % [place] % (Auto) 10.4 (2-11) % Eos % (Auto) 0.3 (0-4) % Baso % (Auto) 0.3 (0-2) % Lymph # (Auto) 1.3 (1.2-4.9) X10*3/uL [place] # (Auto) 1.3 H (0.1-1.2) X10*3/uL Eos # (Auto) 0.0 (0.0-0.4) X10*3/uL Baso # (Auto) 0.0 (0.0-0.2) X10*3/uL Abs Immat Gran (auto) 0.07 H (0.00-0.03) X10*3/uL Absolute Neuts (auto) 10.0 H (2.0-8.3) x10*3/uL Absolute Nucleated RBC 0.000 (0.0-0.012) X10*3/uL Nucleated RBC % (auto) 0.0 (0.0-0.2) /100WBC Sodium 138 (135-145) mmol/L Potassium 3.0 L (3.3-5.1) mmol/L Chloride 94 L (96-108) mmol/L Carbon Dioxide 32 H (22-29) mmol/L Anion Gap 15 (12-20) BUN 16 (9-16) mg/dL Creatinine 0.88 (0.5-1.4) mg/dL Estim Creat Clear Calc 42.3 Estimated GFR > 60 Random Glucose 188 H (60-115) mg/dL Calcium 9.3 D (8.4-10.2) mg/dL Total Bilirubin 0.9 (0.0-1.0) mg/dL AST 36 H (5-31) U/L ALT 16 (0-31) U/L Alkaline Phosphatase 92 (39-117) U/L Troponin I High Sens 3.7 D (<3.5-17.0) ng/L Total Protein 8.3 H (6.5-8.0) g/dL Albumin 3.9 (3.5-5.0) g/dL Independent Historian Clinical information obtained from an independent historian. History obtained from or confirmed by: Other (Son) Discharge Plan Discharge Clinical Impression: Hypokalemia, Pneumonia Fall Qualifiers: Encounter type: initial encounter Qualified Code(s): W19.XXXA - Unspecified fall, initial encounter Patient Disposition: Home, Self-Care Instructions: Fall Prevention for Older Adults (ED), Pneumonia (ED) Additional Instructions: Resume all home medications as prescribed. Complete the 5 day course of antibiotics as prescribed. Follow-up with your primary care doctor in the next 3-5 days and do not hesitate to return to the emergency room for any acute worsening of symptoms. Prescriptions: New doxycycline monohydrate 100 mg capsule 100 mg PO BID 5 Days Qty: 10 0RF No Action citalopram 10 mg tablet 10 mg PO DAILY Qty: 30 6RF memantine 21 mg capsule,sprinkle,ER 24hr 21 mg PO DAILY Qty: 30 6RF amlodipine 10 mg tablet 10 mg PO DAILY Januvia 25 mg tablet 25 mg PO DAILY insulin glargine [Lantus Solostar U-100 Insulin] 100 unit/mL (3 mL) insulin pen 10 unit subcut BEDTIME acetaminophen [Tylenol] 325 mg Tablet 650 mg PO Q6H PRN (Reason: Pain) ibuprofen 200 mg Tablet 400 mg PO Q8H PRN (Reason: Pain) (DME) FreeStyle Lite Strips Strip Qty: 100 0RF Rx Instructions: Test four times a day or as directed. (DME) blood-glucose meter [FreeStyle Lite Meter] Kit Qty: 1 0RF Rx Instructions: As Directed alcohol swabs Pads, Medicated 1 pad TOPICAL QIDACHS Qty: 100 0RF Rx Instructions: Use four times a day or as directed. insulin lispro [Humalog KwikPen Insulin] 100 unit/mL insulin pen See Rx Instructions .ROUTE .COMPLEX Qty: 15 0RF Rx Instructions: Blood Sugar: <150 - 0 units 151-200 - 2 units 201-250 - 4 units 251-300 - 6 units 301-350 - 8 units >350 - 10 units (DME) pen needle, diabetic 32 gauge x 1/4 needle Qty: 100 0RF Rx Instructions: Use four times a day or as directed. (DME) lancets [FreeStyle Lancets] 28 gauge misc Qty: 100 0RF Rx Instructions: Test four times a day or as directed. insulin lispro [Humalog KwikPen Insulin] 100 unit/mL insulin pen 1 sliding scale dose SUBCUT QIDACHS MDD 40 Qty: 15 0RF Rx Instructions: Blood Sugar: <150 - 0 units 151-200 - 2 units 201-250 - 4 units 251-300 - 6 units 301-350 - 8 units >350 - 10 units metformin 500 mg tablet 500 mg PO DAILY atenolol-chlorthalidone [Tenoretic 50] 50-25 mg tablet 1 tab PO DAILY Print Language: [place] Verdean
[2025-04-10 13:08] LABS: MANUAL DIFF FLAG NO
[2025-04-10 13:10] LABS: Hematocrit 41.4 % (37.0-47.0); Hemoglobin 14.8 g/dl (12.0-16.0); Imm Gran Abs Auto 0.07 X10*3/uL (0.00-0.03); Imm Gran Pct Auto 0.5 % (0.0-0.4); Lymphocytes Absolute Auto 1.3 X10*3/uL (1.2-4.9); Mean Corpuscular HGB Conc 35.7 g/dl (31.0-35.0); Mean Corpuscular Hemoglobin 29.9 pg (27.0-33.0); Mean Corpuscular Volume 83.6 fL (80.0-98.0); NRBC Abs Auto 0.000 X10*3/uL (0.0-0.012); NRBC Pct Auto 0.0 /100WBC (0.0-0.2); Platelet Count 371 X10*3/uL (160-400); Red Blood Count 4.95 X10*6/uL (4.20-5.50); White Blood Count 12.8 X10*3/uL (4.8-10.8)
[2025-04-10 13:29] LABS: Alanine Aminotransferase 16 U/L (0-31); Albumin Level 3.9 g/dL (3.5-5.0); Alkaline Phosphatase 92 U/L (39-117); Anion Gap 15 (12-20); Aspartate Amino Transferase 36 U/L (5-31); Blood Urea Nitrogen 16 mg/dL (9-16); Calcium 9.3 mg/dL (8.4-10.2); Carbon Dioxide 32 mmol/L (22-29); Chloride 94 mmol/L (96-108); Creatinine Clr Calc Pharmacy 42.3; Estimated Glomerular Filt Rate > 60; Potassium 3.0 mmol/L (3.3-5.1); Sodium 138 mmol/L (135-145); Total Protein 8.3 g/dL (6.5-8.0)
[2025-04-10 13:36] LABS: Troponin-I High Sensitivity 3.7 ng/L (<3.5-17.0)
[2025-04-10 14:17] VITALS: BP 118/56; PULSE 68; RESP 18; O2SAT 93
--- NOTE | 2025-04-10 15:17 | MHC.EDTECH ---
Patient son rang the call pena and said that he has been ringing for 15 minutes (wasn't 15 minutes) because the patient ripped her IV out. I answered the pena 5-10 minutes prior and patient is confused and she said she was trying to turn the monitor off. The patient son was being rude and wondering why it is taking long for the doctor or CT to come and see her. The nurse reassured that she will be seen as soon as possible, and he didn't seem to understand why it is taking long
[2025-04-10 16:28] VITALS: BP 131/61; PULSE 69; RESP 18; O2SAT 92
[2025-04-10] MEDS: Potassium Chloride ER 20 MEQ TAB.ER.PRT 40 MEQ PO (16:35)
[2025-04-10 17:04] VITALS: BP 131/61; PULSE 69; RESP 18; TEMP 37.1; O2SAT 92
--- OUTSIDE RECORDS SUMMARY | 2025-04-10 17:27 | XMS_ITS | Encounter Summary ---
Author Organization [employer] Address [address] [place] [address] Care Team Providers Care Sales Promotion Representative Name Role Phone Jnaet Law MD Primary Care Provider [phone] Reason for Visit * Reason Onset Date Comments Results 07/22/2023 Encounter Details Date Type Department Care Team ([facility] Contact Info) Description 07/22/2023 Telephone [facility] [address], [place] [phone] Janet Law MD [address], [place] [phone] Results Social History Tobacco Use Types Packs/Day Years Used Date Smoking Tobacco: Never Smokeless Tobacco: Never Depression Answer Date Recorded Patient Health Questionnaire-9 Score 6 11/25/2022 Housing Stability Answer Date Recorded What is your housing situation today? I have yojana cartwright 05/30/[address] you li ve. Do you have problems with any of the following? None of the above 05/30/2023 Food Insecurity Answer Date Recorded Within the past 12 months, y ou worried that your food would run out before you got money to buy more: Never True 05/30/2023 Within the past 12 months,th e food you bought just didn't last and you didn't have enough money to get more: Never True Transportation Answer Date Recorded In the past 12 months, has l ack of transportation kept you from medical appts, meetings, work or from getting things needed for daily living? No 05/30/2023 Utilities Answer Date Recorded In the past 12 months, has t he [employer], gas, oil or water company threatened to shut off services in your home? No 05/30/2023 Depression Answer Date Recorded Patient Health Questionnaire-2 Score 2 11/25/2022 Comments Unknown Sex and Gender Information Value Date Recorded Sex Assigned at Female 05/31/2022 10:20 AM EDT Legal Sex Female 10:20 AM EDT Gender Identity Female 05/31/2022 10:20 AM EDT Sexual Orientation Straight 05/31/2022 10 :20 AM EDT documented as of this encounter Miscellaneous Notes * Telephone Encounter - Tae Jayson - 07/22/2023 4:49 PM EST Tc from pt's daughter requesting urinalysis results. Please contact daughter at [phone]. documented in this encounter Plan of Treatment Not on file documented as of this encounter Visit Diagnoses Not on filedocumented in this encounter Additional Health Concerns Assessment Noted Time PHQ-9 Depression Total Score: 6 11/26/19 23 3:06 PM EDT documented as of this encounter Care Teams Sales Promotion Representative Relationship Specialty Start Date End Date Janet Law MD [address] [place] [address] PCP - General Family Medicine 03/17/17 documented as of this encounter
--- OUTSIDE RECORDS SUMMARY | 2025-04-10 17:27 | XMS_ITS | Clinical Summary ---
Author Organization [employer] Address [address] [facility] [address] [facility] [address] [place] [address] Care Team Providers Care Access Control Specialist Name Role Phone Janet Law MD Primary Care Provider [phone] Allergies Active Allergy Reactions Criticality Noted Date Comments Rico Inhibitors Cough 10/09/2010 Codeine 10/09/2010 Other reaction(s): syncope Penicillins Unknown 08/11/2023 Medications citalopram (CeleXA) 10 MG tablet Take 10 mg by mouth in the morning. 3 Active Memantine HCl ER 21 MG capsule sustained-release 24 hr Take 1 capsule by mouth in the morning. 3 Active HumaLOG KWIKPEN 100 UNIT/ML injectionIndicatio ns:Type 2 diabetes mellitus without complication, without long-term current use of insulin (CMS/[facility]) Inject three times daily per sliding scale: <150mg/dL = 0 units, 151-200mg/dL = 2 units ,201-250mg/dL = 4 units, 251-300mg/dL = 6 units, 301-350mg/dL = 8 units, >350mg/dL = 10 units 4 each 11 4 Active FreeStyle lancetsIndications :Type 2 diabetes mellitus without complication, without long-term current use of insulin (CMS/HCC) 1 each by Other route 4 times daily. Use to test blood sugar four times daily 120 each 4 Active glucose blood (FREESTYLE LITE) test stripIndications:T ype 2 diabetes mellitus without complication, without long-term current use of insulin (CMS/HCC) Use to test blood sugar four times daily 120 each 4 Active BD Pen Needle Camryn 2nd Gen 32G X 4 MM miscIndications:Ty pe 2 diabetes mellitus without complication, without long-term current use of insulin (CMS/HCC) USE DIRECTED FOUR TIMES DAILY 120 each 4 Active Alcohol Swabs (Alcohol Prep) 70 % padsIndications:Ty pe 2 diabetes mellitus without complication, without long-term current use of insulin (CMS/HCC) Use to test blood sugar four times daily 120 each 4 Active fluticasone (Flonase) 50 MCG/ACT nasal spray Administer 2 sprays into each nostril Once per day. Shake gently. Before first use, prime pump. After use, clean tip and replace cap. 16 g 2 4 Active amLODIPine (Norvasc) 10 MG tabletIndications: Primary hypertension TAKE 1 TABLET(10 MG) BY MOUTH EVERY DAY 90 tablet 3 4 Active atorvastatin (Lipitor) 20 MG tabletIndications: Hyperlipidemia, unspecified hyperlipidemia type,Type 2 diabetes mellitus without complication, without long-term current use of insulin (CMS/HCC) TAKE 1 TABLET(20 MG) BY MOUTH DAILY 30 tablet 11 5 Active atenolol-chlorthal idone (Tenoretic) 50-25 MG tabletIndications: Primary hypertension TAKE 1 TABLET BY MOUTH EVERY DAY 90 tablet 3 5 Active Lantus SoloStar 100 UNIT/ML penIndications:Typ e 2 diabetes mellitus without complication, without long-term current use of insulin (CMS/HCC) ADMINISTER 10 UNITS UNDER THE SKIN AT BEDTIME 3 mL 1 5 Active metFORMIN (Glucophage) 500 MG tabletIndications: Type 2 diabetes mellitus without complication, without long-term current use of insulin (CMS/HCC) TAKE 1 TABLET(500 MG) BY MOUTH IN THE MORNING 90 tablet 5 Active SITagliptin (Januvia) 25 MG tabletIndications: Type 2 diabetes mellitus without complication, without long-term current use of insulin (CMS/HCC) TAKE 1 TABLET(25 MG) BY MOUTH IN THE MORNING 90 tablet 3 5 Active Active Problems Problem Noted Date Diagnosed Date Encounter for hepatitis C sc reening test for low risk patient 03/08/2024 Anxiety 12/08/2023 Hypokalemia 07/21/2023 Assessment & Plan (07/21/2023 7:01 PM EST): Noted K+ 2.9 on 06/27 ---> Px by PCP oral K+ x 5 days , pt unsure if took med -advised pt to have today repeated K and mag ordered by PCP Right hip pain 07/21/2023 Assessment & Plan (07/21/2023 7:02 PM EST): From examination there is mild tenderness with palpation over her right hip but with normal ROM with hip examination , there is aprox > 1 week old bruise in her left side of lower back ,no tenderness on back examination. -referred today for right hip XR -tylenol prn -Lidoderm patch -given bruise noted in back and right mckenzie checking today CBC to monitor platelets ,WBC and hb Colon cancer screening 06/27/2023 Overview (06/27/2023): Pt agrees to cologaurd 06/27/2023 Assessment & Plan (06/27/2023 9:49 AM EST): Pt agrees to cologaurd 06/27/2023 Other specified health status 06/07/2023 Overview (04/10/2025): -next comprehensive annual evaluation due after 06/27/2024 -eye care facilitated by [facility] -dental home is [facility] -health care proxy paperwork completed by the patient's LEGAL DOCUMENT SPECIALIST (Fabio) 12/08/23 Assessment & Plan (12/08/2023 11:58 AM EDT): -next physical exam due after 06/27/2024 -eye care facilitated by [facility] -dental home is [facility] - Health care proxy paperwork completed by the patient's LEGAL DOCUMENT SPECIALIST (Fabio) 12/08/23 Assessment & Plan (06/27/2023 9:43 AM EST): -next physical exam due after 06/27/2024 -eye care facilitated by none -dental home is Primary hypertension 07/15/2022 Overview (11/25/2022): -Blood pressure is at goal -Continue lifestyle modifications -Continue current medications Assessment & Plan (12/08/2023 11:55 AM EDT): -Blood pressure is at goal -Continue lifestyle modifications -Continue current medications Assessment & Plan (06/27/2023 8:45 AM EST): -Blood pressure is at goal -Continue lifestyle modifications -Continue current medications Assessment & Plan (11/25/2022 1:20 PM EDT): -Blood pressure is at goal -Continue lifestyle modifications -Continue current medications Alzheimer's dementia 07/15/2022 Overview (06/27/2023): Mini mental status was 18 and strongly suggested of dementia. When asked to draw a clock she was able to draw the number correctly on the clock but was not able to put the hands to the correct time she was asked. -Her son was here for part of the visit and we discussed her getting a caretaker resort to help with medications and light house work. -She is followed in neurology clinic with Dr. Nirmala Denny MD at [facility] [place] . Note from 09/02/22 states MRI ordered, baseline labs and citalopam 10mg and Namenda XR 7mg written -Her B-12, TSH and CBC were normal 12/01/2022 Assessment & Plan (12/08/2023 6:20 PM EDT): Mini mental status was 18 and strongly suggested of dementia. When asked to draw a clock she was able to draw the number correctly on the clock but was not able to put the hands to the correct time she was asked. -Her son was here for part of the visit and we discussed her getting a caretaker resort to help with medications and light house work. -She is followed in neurology clinic with Dr. Nirmala Denny MD at [facility] [place] . Note from 09/02/22 states MRI ordered, baseline labs and citalopam 10mg and Namenda XR 7mg written -Her B-12, TSH and CBC were normal 12/01/2022 Assessment & Plan (06/27/2023 9:26 AM EST): Mini mental status was 18 and strongly suggested of dementia. When asked to draw a clock she was able to draw the number correctly on the clock but was not able to put the hands to the correct time she was asked. -Her son was here for part of the visit and we discussed her getting a caretaker resort to help with medications and light house work. -She is followed in neurology clinic with Dr. Nirmala Denny MD at [facility] . Note from 09/02/22 states MRI ordered, baseline labs and citalopam 10mg and Namenda XR 7mg written -Her B-12, TSH and CBC were normal 12/01/2022 Assessment & Plan (12/03/2022 12:07 PM EDT): Mini mental status was 18 and strongly suggested of dementia. When asked to draw a clock she was able to draw the number correctly on the clock but was not able to put the hands to the correct time she was asked. -Her son was here for part of the visit and we discussed her getting a caretaker resort to help with medications and light house work. -She is followed in neurology clinic note requestsed 11/2022 Hyperglycemia due to diabetes mellitus 0 Overview (12/09/2023): Diabetes is not controlled but much improved due to family involvement. Daughter declines CGM due to pt will likely pull it off and does not like things on her body. Lab Results Component Value Date HGBA1C 8.3 (A) 12/08/2023 HGBA1C 13.7 (A) 06/27/2023 HGBA1C 13.4 (H) 06/27/2023 Lab Results Component Value Date MICROALBUR 34.0 06/27/2023 CREATININE 0.92 08/04/2023 -Rico/Arb: ALLERGIC TO RICO -Statin therapy: atorvastatin 20mg started 12/09/23 -Diabetic eye exam: -Diabetic foot exam: 06/27/2023 -Continue lifestyle modifications -Continue current medications Metfromin 500mg daily Januvia 25mg daily Lantus 10 units daily Humalog sliding scale <150mg/dL = 0 units 151-200mg/dL = 2 units 201-250mg/dL = 4 units 251-300mg/dL = 6 units 301-350mg/dL = 8 units >350mg/dL = 10 units Assessment & Plan (12/09/2023 9:54 AM EDT): Diabetes is not controlled but much improved due to family involvement. Daughter declines CGM due to pt will likely pull it off and does not like things on her body. Lab Results Component Value Date HGBA1C 8.3 (A) 12/08/2023 HGBA1C 13.7 (A) 06/27/2023 HGBA1C 13.4 (H) 06/27/2023 Lab Results Component Value Date MICROALBUR 34.0 06/27/2023 CREATININE 0.92 08/04/2023 -Rico/Arb: ALLERGIC TO RICO -Statin therapy: atorvastatin 20mg started 12/09/23 -Diabetic eye exam: -Diabetic foot exam: 06/27/2023 -Continue lifestyle modifications -Continue current medications Metfromin 500mg daily Januvia 25mg daily Lantus 10 units daily Humalog sliding scale <150mg/dL = 0 units 151-200mg/dL = 2 units 201-250mg/dL = 4 units 251-300mg/dL = 6 units 301-350mg/dL = 8 units >350mg/dL = 10 units Assessment & Plan (07/21/2023 7:01 PM EST): Noted hyperglycemia -not controlled GL hb1AC 13.2<---10.4<---13.9 1 y ago ,today CBG is 362, Urine dipstick showed ketones only trace ,Glu 500 LE trace nit neg -pt is on metformin 500 mg daily and will hold increasing dose given her age -will add today januvia low dose to see if can tolerates (from recent labs on 06/27/2023 cr 1.12 ,GFR 47 ) so no contraindication for it -pt has apt w nurse staff for DM management in 08/04/2023 ( 2 weeks) -advised pt and son to bring home Cbgs in fasting and 2 h after biggest meal -pt may need insulin if no improvement w oral meds. -requested as well PPC f up for uncontrolled DM -will meed close f up -requested today VNA services to nurse staff to have help w VS,monitor for fall risk and glucose monitoring,-refuse x now LEGAL DOCUMENT SPECIALIST states fx helps daily. Assessment & Plan (06/27/2023 12:09 PM EST): Diabetes is not controlled. - Lab Results Component Value Date HGBA1C 13.7 (A) 06/27/2023 HGBA1C 13.4 (H) 06/27/2023 HGBA1C 10.4 (A) 11/25/2022 - Lab Results Component Value Date CREATININE 1.12 06/27/2023 -Changes: needed after labs -Rico/Arb: needed after labs -Statin therapy: needed after labs -Diabetic eye exam: -Diabetic foot exam: 06/27/2023 -Continue lifestyle modifications -Continue current medications Metfromin 500mg daily -GCM written -if normal kidney function, start Lantus 10 units daily at next visit Assessment & Plan (11/25/2022 3:18 PM EDT): Diabetes is not controlled. 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1957 Hyperlipidemia 08/01/1957 Overview (12/09/2023): Lab Results Component Value Date CHOL 339 (H) 06/27/2023 TRIG 155 (H) 06/27/2023 HDL 57 06/27/2023 LDLCHOLCAL 251 (H) 06/27/2023 -atorvastatin 20mg started 12/09/23, check FLP and LFTs 4 weeks -continue lifestyle modification Assessment & Plan (12/09/2023 9:54 AM EDT): Lab Results Component Value Date CHOL 339 (H) 06/27/2023 TRIG 155 (H) 06/27/2023 HDL 57 06/27/2023 LDLCHOLCAL 251 (H) 06/27/2023 -atorvastatin 20mg started 12/09/23, check FLP and LFTs 4 weeks -continue lifestyle modification Mixed anxiety and depressive disorder 08/01/1957 Resolved Problems Problem Noted Date Diagnosed Date Resolved Date Physical exam 03/08/2024 10/09/2024 Moderate early onset Alzheimer's dementia 11/26/2022 12/08/2023 Overview (11/26/2022): Mini mental status exam 18 on 11/26/2022 Assessment & Plan (12/08/2023 11:55 AM EDT): Mini mental status exam 18 on 11/26/2022 Assessment & Plan (06/27/2023 8:46 AM EST): Mini mental status exam 18 on 11/26/2022 Assessment & Plan (11/26/2022 8:54 AM EDT): Pt presents about every 2 years. While she does not appear to have any deficits on presentation, she scored an 18 on her mini mental status exam. I spoke with her son who is aware of her memory deficits. I would like to speak with the family together next visit. I recommended they apply for LEGAL DOCUMENT SPECIALIST. Patient is unlikely to be able to remember to take her medication. Will refer to neurology after speaking with family. It is highly likely patient will not be able to make her appointments without extensive social support. She is aware her memory is impaired, but not aware of the extent. She stats she is frustrated with her family's concern regarding her memory. Plan to check labs, and return soon for family discussion about plan. Encounters Date Type Department Care Team Description 04/10/2025 Orders Only [facility] External Provider, [facility] 04/09/2025 Telephone [facility] [address] [place] [phone] Janet Law MD chart prep 02/20/2025 Refill [facility] [address] [place] [phone] Janet Law MD Type 2 diabetes mellitus without complication, without long-term current use of insulin ([facility]) 02/03/2025 Refill [facility] [address] [place] [address] Janet Law MD Type 2 diabetes mellitus without complication, without long-term current use of insulin ([facility]) 01/25/2025 Refill [facility] [address] [place] [address] Janet Law MD Type 2 diabetes mellitus without complication, without long-term current use of insulin ([facility]) 01/22/2025 Telephone [facility] [address] [place] [address] Janet Law MD Lab Orders 01/17/2025 Refill [facility] [address] [place] [address] Janet Law MD Hyperlipidemia, unspecified hyperlipidemia type; Type 2 diabetes mellitus without complication, without long-term current use of insulin ([facility]); Primary hypertension from Last 3 Months Immunizations Immunization Administration Dates Next Due Influenza High-dose Quadrivalent Preservative Fr ee 06/27/2023 Moderna Covid-19 Vaccine 12+ 10/29/2020,10/02/19 21 Moderna Covid-19 Vaccine 6+ Bivalent 11/25/2022 Pneumococcal Conjugate PCV 20 06/27/2023 Pneumococcal Polysaccharide PPSV23 03/03/2010 RSV Bivalent 12/09/2023 Tdap 11/25/2022 Zoster, Recombinant 12/09/2023 Family History Medical History Relation Name Comments Colon cancer Brother Relation Name Status Comments Brother Social History Tobacco Use Types Packs/Day Years Used Date Smoking Tobacco: Never Passive Smoke Exposure: Never Smokeless Tobacco: Never Tobacco Cessation:Counseling Given: Not Answered Alcohol Use Standard Drinks/Week Comments Never 0 (1 standard drink = 0.6 oz pur e alcohol) Depression Answer Date Recorded Patient Health Questionnaire-9 Score 5 12/08/2023 Patient Health Questionnaire-9 Score 5 12/08/2023 Last PHQ-9: Questionnaire Data Not on file 0 12/08/2023 Housing Stability Answer Date Recorded What is your housing situation today? I have yojana sing 05/30/[address] you li [...] the past 12 months, has t he electric, gas, oil or water company threatened to shut off services in your home? No 05/30/2023 Depression Answer Date Recorded Patient Health Questionnaire-2 Score 2 12/08/2023 Comments Unknown Sex and Gender Information Value Date Recorded Sex Assigned at Female 05/31/2022 10:20 AM EDT Legal Sex Female 10:20 AM EDT Gender Identity Female 05/31/2022 10:20 AM EDT Sexual Orientation Straight 05/31/2022 10 :20 AM EDT Last Filed Vital Signs Vital Sign Reading Time Taken Comments Blood Pressure 113/76 01/24/2024 4:41 PM EDT Pulse 82 01/24/2024 4:41 PM EDT Temperature 36.8 C (98.3 F) 01/24/2024 4:41 PM EDT Respiratory Rate 16 01/24/2024 4:41 PM EDT Oxygen Saturation 94% 01/24/2024 4:41 PM EDT Inhaled Oxygen Concentration - - Weight 62.3 kg (137 lb 6.4 oz) 01/24/2024 4:41 P M EDT Height 149.9 cm (4' 11 ) 01/24/2024 4:41 PM EDT Body Mass Index 27.75 01/24/2024 4:41 PM EDT Plan of Treatment Health Maintenance Due Date Last Done Comments Eye Exam 1957 Alcohol/Substance Use Screening 1959 Hepatitis C Screening 1965 Zoster Vaccines (2 of 2) 02/03/2024 12/09/2023 Diabetes: Hemoglobin A1C 03/09/2024 024, 06/27/2023, 06/27/2023, Additional history exists Diabetes: Foot Exam 06/27/2024 06/27/2023, 06/27/2023, 06/27/2023 Diabetes: Urine Protein Screening 06/27/2024 06/27/2023 Lipid Panel 06/27/2024 06/27/2023 Depression Screening 12/07/2024 12/08/2023, 12/08/19 24 SDOH Screening 12/07/2024 12/08/2023 COVID-19 Vaccine ( season) 2025 11/25/2022, 07/22/2021, 10/29/2020, Additional history exists Influenza Vaccine (#1) 2025 06/27/2023 Tobacco Screening 10/09/2025 10/09/2024 DTaP/Tdap/Td Vaccines (2 - Td or Tdap) 11/25/2032 11/25/2022 Pneumococcal Vaccine: 50+ Years Completed 06/27/2023, 03/03/2010 RSV Patients and Patients Aged 60 years or older Completed 12/09/2023 HIB Vaccines Aged Out No longer eligi ble based on patient's age to complete this topic HPV Vaccines Aged Out No longer eligi ble based on patient's age to complete this topic Hepatitis A Vaccines Aged Out No long er eligible based on patient's age to complete this topic Hepatitis B Vaccines Aged Out No long er eligible based on patient's age to complete this topic IPV Vaccines Aged Out No longer eligi ble based on patient's age to complete this topic Meningococcal B Vaccine Aged Out No l onger eligible based on patient's age to complete this topic Meningococcal Vaccine Aged Out No joselo florence eligible based on patient's age to complete this topic RSV under 20 months Aged Out No longe r eligible based on patient's age to complete this topic Rotavirus Vaccines Aged Out No longer eligible based on patient's age to complete this topic Procedures Procedure Name Priority Date/Time Associated Diagnosis Comments XR CHEST 2 VIEWS Routine 04/10/2025 4:[address] CERVICAL SPINE WO CONTRAST Routine 04/10/2025 3:[address] HEAD WO CONTRAST Routine 04/10/2025 3 :14 PM EDT POCT GLYCATED HEMOGLOBIN, TOTAL Routine 12/08/2023 10:43 AM EDT Type 2 diabetes mellitus without complication, without long-term current use of insulin (CMS/HCC) ALBUMIN, RANDOM URINE W/CREATININE Routine 06/27/2023 10:14 AM EST Type 2 diabetes mellitus without complication, without long-term current use of insulin (CMS/HCC) LIPID PANEL, STANDARD Routine 06/27/2023 10:11 AM EST Type 2 diabetes mellitus without complication, without long-term current use of insulin (CMS/[facility]) from Last 3 Months or Most Recently Relevant to Health Maintenance Results * XR Chest 2 Views (04/10/2025 4:21 PM EDT) Anatomical Region Laterality Modality Chest Radiographic Chiquis ging 04/10/2025 4:21 PM EDT Narrative 04/10/2025 4:31 PM EDT [place] [address] XRay Report Signed Patient: Noelle Collins MR#: [id number] 7 : 1945 Acct:[id number] Age/Sex: 79 / F ADM Date: 04/10/25 Loc: .ED Attending Dr: Ordering Physician: Giles Hurley MD Date of Service: 04/10/25 Procedure(s): XR chest 2V Accession Number(s): [id number] cc: Janet Law MD; Giles Hurley MD Reason for Exam: ? pneumonia EXAMINATION: XR CHEST CLINICAL INFORMATION: ? pneumonia COMPARISON: August 10, 2023 TECHNIQUE: 2 views of the chest were obtained. FINDINGS: There is new vague opacity in the right perihilar lung, probably in the right upper lobe. Lungs are clear otherwise. Heart size is normal. There is no pleural effusion. XR/XR chest 2V IMPRESSION: Suspect right upper lobe pneumonia. Electronically signed by: Klaus Reardon MD 04/10/2025 04:28 PM EDT RP Dictated By: Klaus Reardon MD Signed By: <Electronically signed by Klaus Reardon MD in OV> 04/10/25 1628 DD/ 162 TD/TT: 04/10/25 162 Human Relations Manager: Procedure Note Donotuseinterpreter, Image - 04/10/[address] [address] XRay Report Signed Patient: Noelle CollinsMR#: [id number] 7 : 1945cct:[id number] Age/Sex: 79 / FADM Date: 04/10/25 Loc: .ED Attending Dr: Ordering Physician: Giles Hurley MD Date of Service: 04/10/25 Procedure(s): XR chest 2V Accession Number(s): [id number] cc: Janet Law MD; Giles Hurley MD Reason for Exam: ? pneumonia EXAMINATION: XR CHEST CLINICAL INFORMATION: ? pneumonia COMPARISON: August 10, 2023 TECHNIQUE: 2 views of the chest were obtained. FINDINGS: There is new vague opacity in the right perihilar lung, probably in the right upper lobe. Lungs are clear otherwise. Heart size is normal. There is no pleural effusion. XR/XR chest 2V IMPRESSION: Suspect right upper lobe pneumonia. Electronically signed by: Klaus Reardon MD 04/10/2025 04:28 PM EDT RP Dictated By: Klaus Reardon MD Signed By: <Electronically signed by Klaus Reardon MD in OV> 04/10/25 1628 DD/ 162 TD/TT: 04/10/25 162 Human Relations Manager: [facility] External Provider IMG XR PROCEDURES Final Result * CT Cervical Spine w/o Contrast (04/10/2025 3:14 PM EDT) Anatomical Region Laterality Modality Spine, C-spine Computed Tomogra phy 04/10/2025 3:14 PM EDT Narrative 04/10/2025 3:55 PM EDT [address] [address] [address] Scan Report Signed Patient: Noelle Collins MR#: [id number] 7 : 1945 Acct:[id number] Age/Sex: 79 / F ADM Date: 04/10/25 Loc: HO.ED Attending Dr: Ordering Physician: Giles Hurley MD Date of Service: 04/10/25 Procedure(s): CT cervical spine wo IV con Accession Number(s): [id number] cc: Janet Law MD; Giles Hurley MD Report Number: [id number]: Total DLP = 0.00 mGy-cm Reason for Exam: trauma EXAMINATION: CT CERVICAL SPINE WITHOUT CONTRAST CLINICAL INFORMATION: Trauma COMPARISON: None available. TECHNIQUE: Axial imaging was performed from the base of the skull through T2 without IV contrast. Coronal and sagittal reformatted images were generated from the original axial data set. ALARA: The examination used one or more of the following radiation dose reduction techniques: Automated exposure control, iterative reconstruction, and/or adjustment of mA and/or KV. DLP: 240 mGY*cm FINDINGS: Pyrophosphate deposition is present in the transverse ligament posterior to the dens and in multiple discs. Moderate disc space narrowing and degenerative endplate irregularity is present at C3-4 through C6-7. There are also uncovertebral and facet osteophytes. There is straightening of cervical lordosis. There is no prevertebral soft tissue swelling. There is focal opacity in the anterior right apex and groundglass density in the posterior left apex of the lungs. CT/CT cervical spine wo IV con IMPRESSION: There is straightening of the expected cervical lordosis. This can be idiopathic, but can also be related to degenerative change, muscle spasm, or posterior soft tissue injury. 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 Follow-up to radiographic resolution to exclude an obscured pulmonary nodule. Electronically signed by: Klaus Reardon MD 04/10/2025 03:52 PM EDT RP Dictated By: Klaus Reardon MD Signed By: <Electronically signed by Klaus Reardon MD in OV> 04/10/25 1552 DD/ 1514 TD/TT: 04/10/25 1540 Human Relations Manager: Procedure Note Donotuseinterpreter, Image - 04/10/[address] [place] [address] [address] Scan Report Signed Patient: Noelle CollinsMR#: [id number] 7 : 1945cct:[id number] Age/Sex: 79 / FADM Date: 04/10/25 Loc: HO.ED Attending Dr: Ordering Physician: Giles Hurley MD Date of Service: 04/10/25 Procedure(s): CT cervical spine wo IV con Accession Number(s): [id number] cc: Janet Law MD; Giles Hurley MD Report Number: [id number]: Total DLP = 0.00 mGy-cm Reason for Exam: trauma EXAMINATION: CT CERVICAL SPINE WITHOUT CONTRAST CLINICAL INFORMATION: Trauma COMPARISON: None available. TECHNIQUE: Axial imaging was performed from the base of the skull through T2 without IV contrast. Coronal and sagittal reformatted images were generated from the original axial data set. ALARA: The examination used one or more of the following radiation dose reduction techniques: Automated exposure control, iterative reconstruction, and/or adjustment of mA and/or KV. DLP: 240 mGY*cm FINDINGS: Pyrophosphate deposition is present in the transverse ligament posterior to the dens and in multiple discs. Moderate disc space narrowing and degenerative endplate irregularity is present at C3-4 through C6-7. There are also uncovertebral and facet osteophytes. There is straightening of cervical lordosis. There is no prevertebral soft tissue swelling. There is focal opacity in the anterior right apex and groundglass density in the posterior left apex of the lungs. CT/CT cervical spine wo IV con IMPRESSION: There is straightening of the expected cervical lordosis. This can be idiopathic, but can also be related to degenerative change, muscle spasm, or posterior soft tissue injury. 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 Follow-up to radiographic resolution to exclude an obscured pulmonary nodule. Electronically signed by: Klaus Reardon MD 04/10/2025 03:52 PM EDT RP Dictated By: Klaus Reardon MD Signed By: <Electronically signed by Klaus Reardon MD in OV> 04/10/25 1552 DD/ 1514 TD/TT: 04/10/25 1540 Human Relations Manager: [facility] External Provider IMG CT PROCEDURES Final Result * CT Head w/o Contrast (04/10/2025 3:14 PM EDT) Anatomical Region Laterality Modality Head, Neck Computed Tomogra phy 04/10/2025 3:14 PM EDT Narrative 04/10/2025 3:50 PM EDT [place] [address] CT Scan Report Signed Patient: Noelle Collins MR#: [id number] 7 : 1945 Acct:[id number] Age/Sex: 79 / F ADM Date: 04/10/25 Loc: HO.ED Attending Dr: Ordering Physician: Giles Hurley MD Date of Service: 04/10/25 Procedure(s): CT head/brain wo IV con Accession Number(s): [id number] cc: Janet Law MD; Giles Hurley MD Report Number: [id number]: Total DLP = 880.00 mGy-cm Reason for Exam: trauma EXAMINATION: CT HEAD WITHOUT CONTRAST CLINICAL INFORMATION: Trauma COMPARISON: MRI on December 12, 2022 TECHNIQUE: Contiguous axial imaging was performed from the skull base to vertex without intravenous administration of contrast. This CT examination was performed using dose optimization techniques as appropriate, variously including the following: *Automated exposure control *Adjustment of mA and/or kV according to patient size (this includes techniques or standardized protocols for targeted exams where dose is matched to indication/reason for exam; i.e. extremities or head) *Use of iterative reconstruction technique DLP: 633 mGY*cm FINDINGS: There is no acute ischemic change. Periventricular white matter hypodensities are present There is no intracranial hemorrhage. There is no mass-effect or midline shift. Basal cisterns and ventricles are within normal limits for age/cerebral volume. Orbits are symmetrical and unremarkable. Paranasal sinuses and mastoid air cells are pneumatized. There are no bony abnormalities. CT/CT head/brain wo IV con IMPRESSION: No acute intracranial abnormality. Chronic white matter changes likely related to small vessel disease. Electronically signed by: Klaus Reardon MD 04/10/2025 03:47 PM EDT RP Dictated By: Klaus Reardon MD Signed By: <Electronically signed by Kalus Reardon MD in OV> 04/10/25 1547 DD/ 1514 TD/TT: 04/10/25 1540 Human Relations Manager: Procedure Note Donotuseinterpreter, Image - 04/10/[address] [place] [address] [address] Scan Report Signed Patient: Noelle Collins#: [id number] 7 : 1945cct:[id number] Age/Sex: 79 / FADM Date: 04/10/25 Loc: HO.ED Attending Dr: Ordering Physician: Giles Hurley MD Date of Service: 04/10/25 Procedure(s): CT head/brain wo IV con Accession Number(s): [id number] cc: Janet Law MD; Giles Hurley MD Report Number: [id number]: Total DLP = 880.00 mGy-cm Reason for Exam: trauma EXAMINATION: CT HEAD WITHOUT CONTRAST CLINICAL INFORMATION: Trauma COMPARISON: MRI on December 12, 2022 TECHNIQUE: Contiguous axial imaging was performed from the skull base to vertex without intravenous administration of contrast. This CT examination was performed using dose optimization techniques as appropriate, variously including the following: *Automated exposure control *Adjustment of mA and/or kV according to patient size (this includes techniques or standardized protocols for targeted exams where dose is matched to indication/reason for exam; i.e. extremities or head) *Use of iterative reconstruction technique DLP: 633 mGY*cm FINDINGS: There is no acute ischemic change. Periventricular white matter hypodensities are present There is no intracranial hemorrhage. There is no mass-effect or midline shift. Basal cisterns and ventricles are within normal limits for age/cerebral volume. Orbits are symmetrical and unremarkable. Paranasal sinuses and mastoid air cells are pneumatized. There are no bony abnormalities. CT/CT head/brain wo IV con IMPRESSION: No acute intracranial abnormality. Chronic white matter changes likely related to small vessel disease. Electronically signed by: Klaus Reardon MD 04/10/2025 03:47 PM EDT RP Dictated By: Klaus Reardon MD Signed By: <Electronically signed by Klaus Reardon MD in OV> 04/10/25 1547 DD/ 1514 TD/TT: 04/10/25 1540 Human Relations Manager: [facility] External Provider IMG CT PROCEDURES Final Result * (ABNORMAL) POCT A1C (12/08/2023 10:43 AM EDT) Hemoglobin A1C 8.3(A) 4.0 - 6.0 % QC Media Lot # [id number] Lot# Expiration Date ,324 Blood 12/08/2023 10:4 3 AM EDT Janet Law MD POINT OF CARE TEST ENTER/E DIT ORDERABLES Final Result * Albumin, Random Urine W/Creatinine (06/27/2023 10:14 AM EST) Creatinine, Urine 189.40 mg/dL [facility] Microalbumin Urine 34.0 mg/L [facility] Microalbum Creatinine Ratio Ur 17.9 <30 ug/mg cr [facility] Comment:Albumin/Creatinine R atio Reference Ranges: Normal: < 30 ug/mg creatinine Microalbuminuria: 30 - 300 ug/mg creatinineClinical Albuminuria: > 300 ug/mg creatinine Urine 06/27/2023 10:1 4 AM EST 06/27/2023 11:31 AM EST Janet Law MD LAB URINE ORDERABLES Final Result [facility] [address] [place] [phone] * (ABNORMAL) Lipid Panel, Standard (06/27/2023 10:11 AM EST) Triglycerides 155(H) <150 mg/dL [facility] Comment:Desirable Triglyceri de: less than 150 mg/dLBorderline High Triglyceride 150-199 mg/dLHigh Triglyceride: 200-499 mg/dLVery High Triglyceride: greater than or equal to 5OO mg/dL Cholesterol 339(H) <200 mg/dL [facility] Comment:Desirable Cholestero l: less than 200 mg/dLBorderline High Cholesterol: 200-239 mg/dLHigh Cholesterol: greater than 239 mg/dL LDL Cholesterol Calculated 251(H) <100 mg/dL [facility] Comment:Desirable LDL: less than 100 mg/dLNear Optimal/Above Optimal LDL: 110- 129 mg/dLBorderline High LDL: 130-159 mg/dLHigh LDL: 160-189 mg/dLVery High LDL: greater than or equal to 190 mg/dL HDL Cholesterol 57 >40 mg/dL [facility] Comment:Desirable HDL: great er than 40 mg/dL Note: This HDL assay may give artificially low results in patients with liver disease. Blood Venous blood specimen / Unknown 06/27/2023 10:11 AM EST 06/27/2023 11:07 AM EST Janet Law MD LAB BLOOD ORDERABLES Final Result [facility] [address] [place] [address] [phone] from Last 3 Months or Most Recently Relevant to Health Maintenance Insurance [facility] STANDARD [facility] MEDICARE ADVANTAGE Advance Directives Documents on File Type Date Recorded Patient Behavioral Modification Assistant Expl anation Advance Directives and Living Will 12/14/2023 2:57 PM Health Care Proxy Care Teams Access Control Specialist Relationship Specialty Start Date End Date Janet Law MD [address] [place] [address] PCP - General Family Medicine 03/17/17
--- OUTSIDE RECORDS SUMMARY | 2025-04-10 17:27 | XMS_ITS | Encounter Summary ---
Author Organization [employer] Address [address] [facility] 7t [place] [address] Care Team Providers Care Gear Tooth Grinding Machine Operator Name Role Phone Janet Law MD Primary Care Provider +1- [phone] Encounter Details Date Type Department Care Team ([facility] st Contact Info) Description 10/09/2024 Orders Only [facility] [address] [place], [place] [phone] Janet Law MD [address] [place], [place] [phone] Social History Tobacco Use Types Packs/Day Years Used Date Smoking Tobacco: Never Passive Smoke Exposure: Never Smokeless Tobacco: Never Alcohol Use Standard Drinks/Week Comments Never 0 [...] AM EDT documented as of this encounter Plan of Treatment Not on file documented as of this encounter Visit Diagnoses Not on filedocumented in this encounter Additional Health Concerns Assessment Noted Time PHQ-9 Depression Total Score: 5 12/08/19 24 10:22 AM EDT documented as of this encounter Care Teams Gear Tooth Grinding Machine Operator Relationship Specialty Start Date End Date Janet Law MD [address] [place] [phone] PCP - General Family Medicine 03/17/17 documented as of this encounter
--- OUTSIDE RECORDS SUMMARY | 2025-04-10 17:27 | XMS_ITS | Encounter Summary ---
Author Organization [employer] Address [address] [facility] 7t [place] [address] Care Team Providers Care Bench Grinder Name Role Phone Janet Law MD Primary Care Provider +1- [phone] Reason for Visit * Reason Comments Med Refill Encounter Details Date Type Department Care Team ([facility] st Contact Info) Description 08/09/2023 Refill [facility] [address] [place] [address] Noelle Estes MD [address] [place], [place] [phone] Hypokalemia Social History Tobacco Use Types Packs/Day Years Used Date Smoking Tobacco: Never Smokeless Tobacco: Never Depression Answer Date Recorded Patient Health Questionnaire-9 Score 6 11/25/2022 Housing Stability Answer Date Recorded What is your housing situation today? I have yojanarigoberto cartwright 05/30/[address] you [...] documented as of this encounter Visit Diagnoses Diagnosis Hypokalemia Hypopotassemia documented in this encounter Additional Health Concerns Assessment Noted Time PHQ-9 Depression Total Score: 6 11/26/19 23 3:06 PM EDT documented as of this encounter Care Teams Bench Grinder Relationship Specialty Start Date End Date Janet Law MD [address] [place] [address] PCP - General Family Medicine 03/17/17 documented as of this encounter
--- OUTSIDE RECORDS SUMMARY | 2025-04-10 17:27 | XMS_ITS | Encounter Summary ---
Author Organization [employer] Address [address] [place] [address] 7t [place] [address] Care Team Providers Care Pie Maker Machine Name Role Phone Janet Law MD Primary Care Provider +1- [phone] Encounter Details Date Type Department Care Team ([facility] st Contact Info) Description 03/29/2023 Abstract [facility] MEDICINE [address] [place], [place] [phone] Janet Law MD [address] [place], [place] [phone] Social History Tobacco Use Types Packs/Day Years Used Date Smoking Tobacco: Never Smokeless Tobacco: Never Depression Answer Date Recorded Patient Health Questionnaire-9 Score 6 11/25/2022 Depression Answer Date Recorded Patient Health Questionnaire-2 [...] documented as of this encounter Care Teams Pie Maker Machine Relationship Specialty Start Date End Date Janet Law MD [address] [place], [place] [phone] PCP - General Family Medicine 8/17/17 documented as of this encounter
--- OUTSIDE RECORDS SUMMARY | 2025-04-10 17:27 | XMS_ITS | Encounter Summary ---
Author Organization [employer] Address [address] [facility] [address] [place] [address] Care Team Providers Care Refrigeration Lead Name Role Phone Janet Law MD Primary Care Provider +1- [phone] Encounter Details Date Type Department Care Team ([facility] st Contact Info) Description 04/10/2025 Orders Only [facility] External Provider, [facility] Social History Tobacco Use Types Packs/Day Years [...] on file documented as of this encounter Procedures Procedure Name Priority Date/Time Associated Diagnosis Comments XR CHEST 2 VIEWS Routine 04/10/2025 4:[address] CERVICAL SPINE WO CONTRAST Routine 04/10/2025 3:[address] HEAD WO CONTRAST Routine 04/10/2025 3 :14 PM EDT documented in this encounter Results * XR Chest 2 Views (04/10/2025 4:21 PM EDT) Anatomical Region Laterality Modality Chest Radiographic Chiquis ging 04/10/2025 4:21 PM EDT Narrative 04/10/2025 4:31 PM EDT [place] [address] XRay Report Signed Patient: Noelle Collins MR#: [id number] 7 : 1945 Acct:[id number] Age/Sex: 79 / F ADM Date: 04/10/25 Loc: .ED Attending Dr: Ordering Physician: Giles Hurley MD Date of Service: 04/10/25 Procedure(s): XR chest 2V Accession Number(s): [id number] cc: Janet Law MD; Giles Hurley MD [...] by Klaus Reardon MD in OV> 04/10/25 162 DD/ 162 TD/TT: 04/10/25 162 Desk Monitor: Procedure Note Donotuseinterpreter, Image - 04/10/[address] [address] XRay Report Signed Patient: Onel Collins#: [id number] 7 : 1945cct:[id number] Age/Sex: 79 / FADM Date: 04/10/25 Loc: .ED Attending Dr: Ordering Physician: Giles Hurley MD Date of Service: 04/10/25 Procedure(s): XR chest 2V Accession Number(s): [id number] cc: Janet Law MD; Giles Hurley MD [...] right upper lobe pneumonia. Electronically signed by: lKaus Reardon MD 04/10/2025 04:28 PM EDT RP Dictated By: Klaus Reardon MD Signed By: <Electronically signed by Klaus Reardon MD in OV> 04/10/25 1628 DD/ 162 TD/TT: 04/10/25 162 Desk Monitor: [facility] External Provider IMG XR PROCEDURES Final Result * CT Cervical Spine w/o Contrast (04/10/2025 3:14 PM EDT) Anatomical Region Laterality Modality Spine, C-spine Computed Tomogra phy 04/10/2025 3:14 PM EDT Narrative 04/10/2025 3:55 PM EDT [place] [address] CT Scan Report Signed Patient: Noelle Collins MR#: [id number] 7 : 1945 Acct:[id number] Age/Sex: 79 / F ADM Date: 04/10/25 Loc: HO.ED Attending Dr: Ordering Physician: Giles Hurley MD Date of Service: 04/10/25 Procedure(s): CT cervical spine wo IV con Accession Number(s): [id number] cc: Janet Law MD; Giles Hurley MD Report Number: [id number]: Total DLP = 0.00 mGy-cm Reason for [...] 04/10/25 1552 DD/ 1514 TD/TT: 04/10/25 1540 Desk Monitor: Procedure Note Donotuseinterpreter, Image - 04/10/[address] [place] [address] [address] Scan Report Signed Patient: Noelle CollinsMR#: [id number] 7 : 1945cct:[id number] Age/Sex: 79 / FADM Date: 04/10/25 Loc: HO.ED Attending Dr: Ordering Physician: Giles Hurley MD Date of Service: 04/10/25 Procedure(s): CT cervical spine wo IV con Accession Number(s): [id number] cc: Janet Law MD; Giles Hurley MD Report Number: [id number]: Total DLP = 0.00 mGy-cm Reason for [...] 04/10/25 1552 DD/ 1514 TD/TT: 04/10/25 1540 Desk Monitor: [facility] External Provider IMG CT PROCEDURES Final Result * CT Head w/o Contrast (04/10/2025 3:14 PM EDT) Anatomical Region Laterality Modality Head, Neck Computed Tomogra phy 04/10/2025 3:14 PM EDT Narrative 04/10/2025 3:50 PM EDT [place] [address] CT Scan Report Signed Patient: Noelle Collins MR#: [id number] 7 : 1945 Acct:[id number] Age/Sex: 79 / F ADM Date: 04/10/25 Loc: HO.ED Attending Dr: Ordering Physician: Giles Hurley MD Date of Service: 04/10/25 Procedure(s): CT head/brain wo IV con Accession Number(s): [id number] cc: Janet Law MD; Giles Hurley MD Report Number: [id number]: Total DLP = 880.00 mGy-cm Reason for [...] 04/10/25 1547 DD/ 1514 TD/TT: 04/10/25 1540 Desk Monitor: Procedure Note Donotuseinterpreter, Image - 04/10/[address] [place] [address] [address] Scan Report Signed Patient: Noelle Collins#: [id number] 7 : 1945cct:[id number] Age/Sex: 79 / FADM Date: 04/10/25 Loc: HO.ED Attending Dr: Ordering Physician: Giles Hurley MD Date of Service: 04/10/25 Procedure(s): CT head/brain wo IV con Accession Number(s): [id number] cc: Janet Law MD; Giles Hurley MD Report Number: [id number]: Total DLP = 880.00 mGy-cm Reason for [...] Klaus Reardon MD 04/10/2025 03:47 PM EDT Dictated By: Klaus Reardon MD Signed By: <Electronically signed by Klaus Reardon MD in OV> 04/10/25 1547 DD/ 1514 TD/TT: 04/10/25 1540 Desk Monitor: [facility] External Provider IMG CT PROCEDURES Final Result documented in this encounter Visit Diagnoses Not on filedocumented in this encounter Additional Health Concerns Assessment Noted Time PHQ-9 Depression Total Score: 5 12/08/19 24 10:22 AM EDT documented as of this encounter Care Teams Refrigeration Lead Relationship Specialty Start Date End Date Janet Law MD [address] [place] [phone] PCP - General Family Medicine 03/17/17 documented as of this encounter
--- OUTSIDE RECORDS SUMMARY | 2025-04-10 17:27 | XMS_ITS | Encounter Summary ---
Author Organization [employer] Address [address] [facility] 7t [place] [address] Care Team Providers Care Job Placement Specialist Name Role Phone Janet Law MD Primary Care Provider +1- [phone] Reason for Visit * Reason Comments Med Refill Encounter Details Date Type Department Care Team ([facility] Contact Info) Description 12/10/2024 Refill [facility] [address] [place], [place] [phone] Janet Law MD [address] [place], [place] [phone] Hyperlipidemia, unspecified hyperlipidemia type; Type 2 diabetes mellitus without complication, without long-term current use of insulin ([facility]) Social History Tobacco Use Types Packs/Day Years [...] as of this encounter Visit Diagnoses Diagnosis Hyperlipidemia, unspecified hyperlipidemia type Type 2 diabetes mellitus without complication, without long-term current use of insulin ([facility]) documented in this encounter Additional Health Concerns Assessment Noted Time PHQ-9 Depression Total Score: 5 12/08/19 24 10:22 AM EDT documented as of this encounter Care Teams Job Placement Specialist Relationship Specialty Start Date End Date Janet Law MD [address] [place] [address] PCP - General Family Medicine 03/17/17 documented as of this encounter
--- OUTSIDE RECORDS SUMMARY | 2025-04-10 17:27 | XMS_ITS | Encounter Summary ---
Author Organization [employer] Address [address] [facility] 7t [place] [address] Care Team Providers Care Roundhouse Worker Name Role Phone Janet Law MD Primary Care Provider +1- [phone] Reason for Visit * Reason Onset Date Comments chart prep 04/09/2025 Encounter Details Date Type Department Care Team ([facility] st Contact Info) Description 04/09/2025 Telephone [facility] [address] [place] [address] Janet Law MD [address] [place] [address] chart prep Social History Tobacco Use Types Packs/Day Years [...] encounter Miscellaneous Notes * Telephone Encounter - Nicole Khan [place] - 04/09/2025 12:39 PM EDT Chart Prep Labs: not applicable Images: not applicable Referrals: not applicable Vaccines due: Covid, Flu, and Zoster Screenings: eye exam and foot exam Overdue care gaps: A1c, Glucose, SBIRT, SDOH, PHQ-9, ALLA-7, Oral health screening, and Disability screen documented in this encounter Plan of Treatment Not on file documented as of this encounter Visit Diagnoses Not on filedocumented in this encounter Additional Health Concerns Assessment Noted Time PHQ-9 Depression Total Score: 5 12/08/19 24 10:22 AM EDT documented as of this encounter Care Teams Roundhouse Worker Relationship Specialty Start Date End Date Janet Law MD [address] [place] [address] PCP - General Family Medicine 03/17/17 documented as of this encounter
--- OUTSIDE RECORDS SUMMARY | 2025-04-10 17:27 | XMS_ITS | Encounter Summary ---
Author Organization [employer] Address [address] [facility] 7t [place] [address] Care Team Providers Care Strip Machine Tender Name Role Phone Janet Law MD Primary Care Provider +1- [phone] Reason for Visit * Reason Comments Med Refill Encounter Details Date Type Department Care Team ([facility] Contact Info) Description 04/03/2024 Refill [facility] [address] [place], [place] [phone] Janet Law MD [address] [place], [place] [phone] Primary hypertension Social History Tobacco Use Types Packs/Day Years [...] as of this encounter Visit Diagnoses Diagnosis Primary hypertension Unspecified essential hypertension documented in this encounter Additional Health Concerns Assessment Noted Time PHQ-9 Depression Total Score: 5 12/08/19 24 10:22 AM EDT documented as of this encounter Care Teams Strip Machine Tender Relationship Specialty Start Date End Date Janet Law MD [address] [place] [address] PCP - General Family Medicine 03/17/17 documented as of this encounter
== END 2025-04-10 17:05 | disposition home or self-care (01) ==
PROVIDERS: Emergency Provider Emergency Medicine; PCP Family Medicine
DX: E87.6 Hypokalemia (principal); J18.9 Pneumonia, unspecified organism; R07.9 Chest pain, unspecified; F03.90 Unspecified dementia, unspecified severity, without behavioral disturbance, psychotic disturbance, mood disturbance, and anxiety; T14.90XA Injury, unspecified, initial encounter; W19.XXXA Unspecified fall, initial encounter; Y93.9 Activity, unspecified; Y92.9 Unspecified place or not applicable; Y99.9 Unspecified external cause status
CPT/HCPCS: 36415; 70450; 71046; 72125; 80053; 84484; 85025; 93005; 99284; 99285

== ENCOUNTER → 2025-04-10 12:35 | Outpatient (BNV) | payer OTHER, SELFPAY | PROVIDERS: Emergency Provider Emergency Medicine; PCP Family Medicine; Visit Provider Radiology Diagnostic Radiology | DX: M50.322 Other cervical disc degeneration at C5-C6 level (principal); R90.82 White matter disease, unspecified; J18.9 Pneumonia, unspecified organism | CPT/HCPCS: 70450; 71046; 72125 ==

== ENCOUNTER → 2025-04-10 12:37 | Outpatient (BNV) | payer OTHER, SELFPAY | PROVIDERS: Emergency Provider Emergency Medicine; PCP Family Medicine; Visit Provider Internal Medicine Cardiovascular Disease | DX: R94.31 Abnormal electrocardiogram [ECG] [EKG] (principal); Z04.3 Encounter for examination and observation following other accident | CPT/HCPCS: 93010 ==